=== PATIENT | male | born 1950 | race Caucasian/White ===

== ENCOUNTER 2022-06-08 08:44 | Outpatient (CLI) | payer MEDICARE, BC, SELFPAY ==
[2022-06-08 14:13] LABS: Chloride* 103 mmol/L (96-114); Sodium* 138 mmol/L (135-149)
[2022-06-08 14:14] LABS: Potassium* 4.7 mmol/L (3.6-5.1)
[2022-06-08 14:16] LABS: Alanine Aminotransferase* 24 U/L (4-50); Blood Urea Nitrogen* 18 mg/dL (7-30); Carbon Dioxide* 31 mmol/L (20-32); Cholesterol* 129 mg/dL (90-199); Creatinine* 0.8 mg/dL (0.5-1.5); Estimated Glomerular Filt Rate 93 ml/min
[2022-06-08 14:17] LABS: Calcium* 8.9 mg/dL (8.4-10.6); Glucose* 278 mg/dL (60-115); HDL Cholesterol* 33 mg/dL (>=40); LDL Cholesterol Calculated 53 mg/dL (<100); Triglycerides* 215 mg/dL (40-149)
[2022-06-08 15:21] LABS: PSA Screen* 2.76 ng/mL (0.10-4.00)
== END 2022-06-08 08:45 | disposition home or self-care (01) ==
PROVIDERS: PCP Family Medicine; Visit Provider Family Medicine
DX: Z00.00 Encounter for general adult medical examination without abnormal findings (principal); E11.9 Type 2 diabetes mellitus without complications; E78.5 Hyperlipidemia, unspecified; I10 Essential (primary) hypertension; Z12.5 Encounter for screening for malignant neoplasm of prostate; N40.0 Benign prostatic hyperplasia without lower urinary tract symptoms; G47.33 Obstructive sleep apnea (adult) (pediatric)
CPT/HCPCS: 80048; 80061; 84153; 84460

== ENCOUNTER 2022-09-09 09:17 | Outpatient (CLI) | payer MEDICARE, BC, SELFPAY ==
[2022-09-09 14:48] LABS: Uric Acid* 8.4 mg/dL (2.2-8.4)
== END 2022-09-09 09:18 | disposition home or self-care (01) ==
LOC: FBOREF 09:17
PROVIDERS: PCP Family Medicine; Visit Provider Family Medicine
DX: M10.9 Gout, unspecified (principal)
CPT/HCPCS: 84550

== ENCOUNTER 2023-01-01 12:55 | Emergency (ER) | payer MEDICARE, BC, SELFPAY ==
[2023-01-01 12:59] VITALS: BP 144/78; PULSE 78; RESP 18; TEMP 37.1; O2SAT 93; BMI 33.8
--- NOTE | 2023-01-01 13:10 | CRLHL7_ITS ---
For Patients: As a result of the Cures Act, medical imaging exams and procedure reports are released immediately into your electronic medical record. You may view this report before your referring provider. If you have questions, please contact your health care provider. INDICATION: fell in bathtub last night, RT elbow pain HISTORY: Fall. Right elbow pain. Comparison: None. Technique: Right elbow, three views. Findings: No fracture is identified. A true lateral projection was not obtained. No radiopaque foreign body or soft tissue gas. No articular erosion. No periarticular osteopenia. Mild osteophytic spurring is present at the elbow. Impression: 1. No acute fracture visualized. 2. A true lateral projection was not included. Dictated by Marcello Norton MD @ 01/01/2023 2:31:59 PM Dictated by: Marcello Norton MD @ 01/01/2023 14:32:11 (Electronically Signed)
--- NOTE | 2023-01-01 13:12 | ED.GENADULT ---
HPI - General Adult General Time Seen by Provider: 13:12 Date Seen: 01/01/23 Chief complaint: Extremity Pain/Injury, Upper Stated complaint: Fall, elbow pain Time Seen by Provider: 01/01/23 12:57 History of Present Illness HPI narrative: This is a very pleasant 72-year-old gentleman who presents to the ER today with his with concern for a right elbow injury. He has a past medical history including type 2 diabetes, diabetic neuropathy, GERD, gout, hypertension, sleep apnea, BPH, hyperlipidemia, coronary disease. He slipped and fell it last night when he was getting out of the bathtub. Does not remember exactly how he fell but it sounds like it was the wet floor in the bathtub. He fell and landed with his weight directly on his flexed right elbow. He did not have any other injuries from the fall. When asked specifically he denies any injury to his head. No neck pain. No chest pain. No left upper extremity pain. No back pain. No hip pain. No lower extremity injury. He is only having pain in his right elbow. He was able to go the bed and sleep normally last night. However this morning he noticed that his elbow was swollen, a little bit red, and painful. It hurts when he tries to flex it and hurts when he tries to pronate and supinate his forearm. The pain is primarily over the posterior elbow over the olecranon. Is not lacerated or bleeding. No pain proximally in the humerus or shoulder. No numbness or tingling in his hand. He takes aspirin. No other anticoagulant. Related Data Home Medications Medication Instructions Recorded Confirmed aspirin 81 mg chewable tablet 81 mg PO QDAY 06/08/22 12/20/22 (Aspirin Childrens) duloxetine 60 mg capsule,delayed 60 mg PO QDAY 06/08/22 12/20/22 release glipizide 10 mg tablet 20 mg PO BID 06/08/22 12/20/22 hydrochlorothiazide 25 mg tablet 25 mg PO QDAY 06/08/22 12/20/22 lisinopril 20 mg tablet 20 mg PO QDAY 06/08/22 12/20/22 sdiyxlmf-ezjydmpi-fyyrl acid 400 1 tab PO QDAY 06/08/22 12/20/22 mcg-vit K 20 mcg-lycop 300 mcg tablet (One-A-Day Men's Multivitamin) Previous Rx's Medication Instructions Recorded metformin 500 mg tablet,extended 1,000 mg (2 x 500 mg) PO BID #180 06/08/22 release 24 hr tabs metoprolol succinate 200 mg 200 mg PO QDAY #90 tabs 06/08/22 tablet,extended release 24 hr insulin glargine 100 unit/mL (3 20 unit (0.2 mL) subcut QAM 90 09/09/22 mL) subcutaneous pen (Basaglar days #21 mL KwikPen U-100 Insulin) atorvastatin 40 mg tablet 40 mg PO QDAY #90 tabs 09/13/22 blood sugar diagnostic (Contour #100 ea 09/20/22 Next Test Strips) lancets 30 gauge (BD Ultra-Fine II #100 ea 09/20/22 Lancets) flash glucose scanning reader #1 ea 11/16/22 (FreeStyle Dustin 2 [place]) flash glucose sensor (FreeStyle #2 ea 11/16/22 Dustin 2 Sensor kit) peg 3350-electrolytes 236 240 ml PO Q10M #4,000 mL 12/22/22 gram-22.74 gram-6.74 gram-5.86 gram solution (Golytely) pen needle, diabetic 31 gauge x #100 ea 12/23/22 5/16 (BD Ultra-Fine Short Pen Needle) tamsulosin 0.4 mg capsule (Flomax) 0.4 mg PO QDAY #90 caps 12/23/22 Allergies Allergy/AdvReac Type Severity Reaction Status Date / Time Iodinated Contrast Media Allergy Unknown Mid 60s. Verified 12/20/22 08:55 Had contrast since and did OK naproxen Allergy Unknown GI Bleed Verified 12/20/22 08:55 [facility] Medical History (Updated 01/01/23 @ 14:48 by Alok Ruby MD) Gout ?M10.9 - Gout, unspecified (ICD-10) Diabetic neuropathy ?E11.40 - Type 2 diabetes mellitus with diabetic neuropathy, unspecified (ICD-10) History of adenomatous polyp of colon ?Z86.010 - Personal history of colonic polyps (ICD-10) Sleep related gastroesophageal reflux disease ?K21.9 - Gastro-esophageal reflux disease without esophagitis (ICD-10) Hypertensive heart disease ?I11.9 - Hypertensive heart disease without heart failure (ICD-10) History of basal cell carcinoma (BCC) (2007) ?Z85.828 - Personal history of other malignant neoplasm of skin (ICD-10) Atherosclerotic heart disease ?I25.10 - Atherosclerotic heart disease of [place] coronary artery without angina pectoris (ICD-10) Atherosclerosis of [place] arteries of extremities with rest pain, bilateral legs ?I70.223 - Atherosclerosis of [place] arteries of extremities with rest pain, bilateral legs (ICD-10) Obstructive sleep apnea ?G47.33 - Obstructive sleep apnea (adult) (pediatric) (ICD-10) History of myocardial infarction (2008) ?I25.2 - Old myocardial infarction (ICD-10) Hypertension ?I10 - Essential (primary) hypertension (ICD-10) BPH (benign prostatic hyperplasia) ?N40.0 - Benign prostatic hyperplasia without lower urinary tract symptoms (ICD-10) Type 2 diabetes mellitus ?E11.9 - Type 2 diabetes mellitus without complications (ICD-10) Hyperlipidemia ?E78.5 - Hyperlipidemia, unspecified (ICD-10) Surgical History History of vasectomy ?Z98.52 - Vasectomy status (ICD-10) History of tonsillectomy ?Z90.89 - Acquired absence of other organs (ICD-10) History of foot surgery ?Z98.890 - Other specified postprocedural states (ICD-10) History of blepharoplasty (08/21/14) ?Z98.890 - Other specified postprocedural states (ICD-10) History of appendectomy ?Z90.49 - Acquired absence of other specified parts of digestive tract (ICD-10) History of total bilateral knee replacement ?Z96.653 - Presence of artificial knee joint, bilateral (ICD-10) History of total right hip arthroplasty (11/12/19) ?Z96.641 - Presence of right artificial hip joint (ICD-10) History of coronary artery stent placement (2007) ?Z95.5 - Presence of coronary angioplasty implant and graft (ICD-10) Family History Paternal Grandfather Diabetes Father Nonmelanoma skin cancer Coronary artery disease High cholesterol High blood pressure Brother Coronary artery disease, Onset Age: 58 High cholesterol Diabetes High blood pressure Sister High cholesterol High blood pressure Diabetes Social History (Updated 06/13/22 @ 21:24 by Gilberto Pope MD) Narrative: , 3 kids, retired, non-smoker, social EtOH Smoking Status: Former smoker Non-prescribed substance use: denies use Little interest or pleasure in doing things: several days Feeling down, depressed, or hopeless: not at all Exam Narrative: Exam Narrative: Constitutional: Appears well-developed and well-nourished. Alert. Conversant. Non toxic. HENT: Head: Atraumatic. Nose: Nose normal. Mouth/Throat: Oral mucosa is clear and moist. no trismus. Pharynx normal. Tonsils symmetric. No tonsillar enlargement, erythema, or exudate. Eyes: Conjunctivae normal. EOM normal. Pupils equal, round, and reactive to light. No scleral icterus. Neck: Normal range of motion. Neck supple. No tracheal deviation present. Cardiovascular: Normal rate, regular rhythm. No gallop. No friction rub. No murmur heard. Symmetric radial artery pulses Pulmonary/Chest: Effort normal. No stridor. No respiratory distress. No wheezes. No rales. No rhonchi . No tenderness. Abdominal: Soft. Bowel sounds normal. No distension. No mass. No tenderness. No rebound. No guarding. Musculoskeletal: RUE: Clavicle nontender. Shoulder joint nontender. Range of motion limited a little bit by elbow pain but he has intact abduction, flexion, internal and external rotation of the shoulder. He mows shaft is nontender. Strong brachial pulse. He is tender with subtle redness and swelling over the dorsal aspect of his elbow surrounding and the olecranon process. Also tender medially over the medial epicondyle of the distal humerus. No definite bony crepitus. He is able to extend almost complete being able to flex just beyond 90? but is limited by pain. He prefers to keep his forearm in neutral position and has pain with pronation and supination. When he does this he has pain in the area of the radial head. Forearm, wrist, hand, thumb, fingers are nontender. Intact radial, median, ulnar nerve motor and sensory function. Strong radial pulse. Brisk distal capillary refill. LUE: Normal range of motion. No tenderness. No deformity RLE: Normal range of motion. No edema. No tenderness. No deformity LLE: Normal range of motion. No edema. No tenderness. No deformity Neurological: Alert and oriented to person, place, and time. Normal strength. CN II-VII intact. No sensory deficit. GCS eye subscore is 4. GCS verbal subscore is 5. GCS motor subscore is 6. Normal coordination Skin: Skin is warm and dry. No rash noted. No pallor. Normal capillary refill. Psychiatric: Normal mood. Normal affect. Const: Vital Signs, click to edit/add: Vital Signs - 24 hr 01/01/23 12:59 Temperature 98.8 F Pulse Rate [Right Pulse Oximeter] 78 Respiratory Rate 18 Blood Pressure [Ri ght Upper Arm] 144/78 H Pulse Oximetry 93 Oxygen Delivery Me thod Room Air Course Vital Signs Vital signs: Initial Vital Signs Temperature 98.8 F 01/01/23 12:59 Temperature Source Temporal Artery Scan 01/01/23 12:59 Pulse Rate 78 01/01/23 12:59 Respiratory Rate 18 01/01/23 12:59 Blood Pressure 144/78 H 01/01/23 12:59 Blood Pressure Mean 100 01/01/23 12:59 Blood Pressure Position Sitting 01/01/23 12:59 Pulse Oximetry 93 01/01/23 12:59 Oxygen Delivery Method Room Air 01/01/23 12:59 Vital Signs Temperature 98.8 F 01/01/23 12:59 Pulse Rate 78 01/01/23 12:59 Respiratory Rate 18 01/01/23 12:59 Blood Pressure 144/78 H 01/01/23 12:59 Pulse Oximetry 93 01/01/23 12:59 Oxygen Delivery Method Room Air 01/01/23 12:59 Temperature 98.8 F 01/01/23 12:59 Pulse Rate 78 01/01/23 12:59 Respiratory Rate 18 01/01/23 12:59 Blood Pressure 144/78 H 01/01/23 12:59 Pulse Oximetry 93 01/01/23 12:59 Oxygen Delivery Method Room Air 01/01/23 12:59 Medical Decision Making [facility] Narrative Medical decision making narrative: Pleasant 72-year-old gentleman presents to the ER today with right elbow pain that began overnight after he slipped and fell, landing on his elbow yesterday evening getting out of the shower. Fortunately x-rays are negative for any acute fracture. He is neurovascularly intact in that arm. No evidence for other injuries such as cervical spine, shoulder, humerus fracture. He does have pain with swelling on the dorsum of the elbow which could be a soft tissue contusion however there is a small amount of redness there. Almost wonder if he may be developing a posttraumatic olecranon bursitis. No clear evidence for cellulitis. No definite fluctuance. At this point I do not think he needs bursa fluid aspiration. No concern for septic bursitis. There is no other redness around the elbow joint to suggest a septic elbow. I do not think he needs arthrocentesis. Plan will be supportive care with sling, rest, ice, nonsteroidal anti-inflammatories. He does have a history of adverse reaction to naproxen which causes stomach upset. No history of kidney failure. Consider possible use of steroids but he is diabetic and this may actually worsen his glycemic control so will start with a short course of ibuprofen. He will use 600 mg q.6 hours p.r.n. for the next 2-3 days. If he is not improving he will follow-up with orthopedics or return to the ER for re-evaluation. Imaging Data X-ray right elbow: Attestation: I have reviewed the pertinent imaging results. My impression: No acute fracture Radiologist's impression: Impression: 1. No acute fracture visualized. 2. A true lateral projection was not included. Discharge Plan Discharge Clinical Impression: Elbow pain, right Patient Disposition: Home, Self-Care Condition: Stable Instructions: Elbow Sprain (ED) Additional Instructions: At this time we do not see any broken bones in your elbow. We help with your pain is just due to bruising and swelling from falling. However I am concerned that you may be at risk for developing ?olecranon bursitis?. This could lead to increasing swelling and home watery fluid collection on the back of your elbow. Try to rest her elbow for the next few days. Use the sling when you are up and around. Use ice pack for 20 minutes every 3-4 hours. Use ibuprofen for anti-inflammatory effect and pain relief. If terrible is not completely improve within the next 3-5 days, recheck with the [facility]. Call [phone] to arrange an appointment. If you have any concerns especially worsening pain, high fever, numbness or weakness down your arms or in your hand, come back to the ER immediately. Prescriptions: No Action (DME) FreeStyle Dustin 2 [place] Misc See Rx Instructions .Route Qty: 1 0RF Rx Instructions: As directed (DME) FreeStyle Dustin 2 Sensor Kit See Rx Instructions .Route Qty: 2 3RF Rx Instructions: Change every 2 weeks glipizide 10 mg tablet 20 mg PO BID Patient Comments: TAKE TWO TABLETS BY MOUTH BEFORE BREAKFAST AND ONE TABLET BEFORE SUPPER. duloxetine 60 mg capsule,delayed release(DR/EC) 60 mg PO QDAY Patient Comments: AFTER 1 WEEK ON 30 MG START TAKING TAKE ONE CAPSULE BY MOUTH EVERY DAY hydrochlorothiazide 25 mg tablet 25 mg PO QDAY Patient Comments: TAKE ONE TABLET BY MOUTH EVERY DAY DUE FOR APPOINTMENT IN JULY CALL 2-3 MONTHS IN ADVANCE lisinopril 20 mg tablet 20 mg PO QDAY Patient Comments: TAKE ONE TABLET BY MOUTH EVERY DAY FOR HYPERTENSION aspirin [Aspirin Childrens] 81 mg tablet,chewable 81 mg PO QDAY One-A-Day Men's Multivitamin 400-20-300 mcg tablet 1 tab PO QDAY metformin 500 mg tablet extended release 24 hr 1,000 mg PO BID Qty: 180 0RF metoprolol succinate 200 mg tablet extended release 24 hr 200 mg PO QDAY Qty: 90 3RF insulin glargine [Basaglar KwikPen U-100 Insulin] 100 unit/mL (3 mL) insulin pen 20 unit subcut QAM 90 Days Qty: 21 3RF atorvastatin 40 mg tablet 40 mg PO QDAY Qty: 90 3RF (DME) Contour Next Test Strips Strip See Rx Instructions .Route Qty: 100 3RF Rx Instructions: As directed (DME) lancets [BD Ultra-Fine II Lancets] 30 gauge misc See Rx Instructions .Route Qty: 100 3RF Rx Instructions: As directed peg 3350-electrolytes [Golytely] 236-22.74-6.74 -5.86 gram recon soln 240 ml PO Q10M Qty: 4000 0RF Rx Instructions: until fecal effluent is clear tamsulosin [Flomax] 0.4 mg capsule 0.4 mg PO QDAY Qty: 90 3RF (DME) pen needle, diabetic [BD Ultra-Fine Short Pen Needle] 31 gauge x 5/16 needle See Rx Instructions .Route Qty: 100 2RF Rx Instructions: QD Follow Up/Referrals: Gilberto Pope MD [Primary Care Provider] - Stand Alone Forms: [employer] Info Instructions
[2023-01-01 14:46] VITALS: BP 129/87; PULSE 82; RESP 14; O2SAT 97
--- NOTE | 2023-01-01 15:05 | ED.NURSE ---
Arm sling applied by EDT.
== END 2023-01-01 15:17 | disposition home or self-care (01) ==
PROVIDERS: Emergency Provider Emergency Medicine; PCP Family Medicine
DX: M25.521 Pain in right elbow (principal)
CPT/HCPCS: 73080; 99283

== ENCOUNTER 2023-01-03 09:52 | Outpatient (CLI) | payer MEDICARE, BC, SELFPAY ==
--- NOTE | 2023-01-03 11:18 | W.ANESCHARGE ---
Anesthesia Charges Start Date/Time Anesthesia Start Date: 01/03/23 Anesthesia Start Time: 11:25 Stop Date/Time Anesthesia Stop Date: 01/03/23 Anesthesia Stop Time: 12:06 Summary Extremes of Age - Over 70 or under 1: MDA
--- NOTE | 2023-01-03 12:10 | W.ANESCHARGE ---
Anesthesia Charges Start Date/Time Anesthesia Start Date: 01/03/23 Anesthesia Start Time: 11:25 Stop Date/Time Anesthesia Stop Date: 01/03/23 Anesthesia Stop Time: 12:06
== END 2023-01-03 09:53 | disposition home or self-care (01) ==
LOC: OP CLINIC 09:54
PROVIDERS: PCP Family Medicine; Visit Provider Surgery
DX: Z86.010 Personal history of colon polyps (principal); K64.8 Other hemorrhoids; K64.4 Residual hemorrhoidal skin tags; K57.30 Diverticulosis of large intestine without perforation or abscess without bleeding
CPT/HCPCS: 00811; 45378; 99100; J2704

== ENCOUNTER 2023-01-13 07:40 | Outpatient (CLI) | payer MEDICARE, BC, SELFPAY ==
--- NOTE | 2023-01-13 08:00 | CRLHL7_ITS ---
For Patients: As a result of the Century Cures Act, medical imaging exams and procedure reports are released immediately into your electronic medical record. You may view this report before your referring provider. If you have questions, please contact your health care provider. Indication: Right elbow pain Technique: Routine noncontrast CT right elbow Please note that all CT scans at this facility use dose modulation, iterative reconstruction, and/or weight-based dosing when appropriate to reduce radiation dose to as low as reasonably achievable. Comparison: Radiographs 01/01/2023 Findings: Spurring is present at the radial capitellar and ulna humeral compartments. Curvilinear spur at the medial humeral epicondyle. Multiple chronic ossicles adjacent to the lateral humeral epicondyle. Small density adjacent to the tip of the posterior olecranon at the joint space. Other soft tissue densities are present adjacent to the posterior joint capsule. Posterior olecranon spur noted with overlying soft tissue swelling. Joint effusion is present. No osteonecrosis, malalignment, intrinsic osseous lesion or fracture. 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 No fracture deformity. Likely degenerative related posterior soft tissue densities. Chronic medial and lateral humeral epicondylitis. Posterior olecranon spur with probable olecranon bursitis. Please note that all CT scans at this facility use dose modulation, iterative reconstruction, and/or weight-based dosing when appropriate to reduce radiation dose to as low as reasonably achievable. Dictated by Gilberto Jesus MD @ 01/13/2023 8:55:35 AM (Electronically Signed)
== END 2023-01-13 07:41 | disposition home or self-care (01) ==
LOC: CT 07:40
PROVIDERS: PCP Family Medicine; Visit Provider Family Medicine
DX: M25.521 Pain in right elbow (principal); M19.021 Primary osteoarthritis, right elbow; M77.11 Lateral epicondylitis, right elbow
CPT/HCPCS: 73200

== ENCOUNTER 2023-02-17 08:53 | Outpatient (CLI) | payer MEDICARE, BC, SELFPAY ==
--- NOTE | 2023-02-17 09:15 | MR_ITS ---
[address] [address] Phone:?[phone] Fax:?[phone] Referring Physician Information: Rito Campbell [address] [facility] [address] Phone:?[phone] Fax:?[phone] Patient:Benjamín New D.O.B:?1950 Sex:?Male Phone:? [facility] MRN:?[id number] Exam Date:?02/17/2023 EXAM: MRI EXAMINATION OF THE LEFT HIP CLINICAL INFORMATION: Male, 72 years old, with left hip pain. INDICATION: Evaluate hip pain. PRIOR SURGERY: None reported. PLAIN FILMS: None available. COMPARISONS: No prior MRIs available. TECHNICAL INFORMATION: Using a 1.5T MR scanner and a localizing surface coil: coronals: PD, T2 sagittals: PD, T2 oblique axials: PD straight axials: PDFS coronals: T1, STIR of pelvis and hips SEDATION: None CONTRAST: None FINDINGS: Hip joint: Moderate left hip joint effusion. Moderate-marked generalized thinning of the articular cartilage throughout the superior aspect of the left hip joint, with areas of near full-thickness chondral loss. No intra-articular bodies. Status post right total hip arthroplasty, which is largely obscured by the metal susceptibility artifact. Labrum: Intrasubstance degeneration and poorly defined fraying/tearing of the anterior through posterosuperior labrum, with a 10 x 6 mm anterosuperior paralabral cyst (axial PD oblique series 6 image 16). Proximal femur: No femoral occult fracture, stress injury, marrow edema or osteonecrosis. Loss of normal femoral head/neck junction offset with mild cam morphology. Mild marginal osteophytosis. Acetabulum: Mild-moderate marginal osteophytosis and reactive osseous changes are present. No stress/occult fracture or periacetabular ossicle. Version: Normal acetabular anteversion. Coverage: Left lateral center edge (CE) angle measures approximately 32? (normal 25?-39?), midline coronal series image 15, corrected for pelvic obliquity. Ligamentum teres: Ligamentum teres is intact and unremarkable. Iliofemoral ligament: The iliofemoral ligament is intact without thickening. Pelvis osseous structures: Sacral ala and sacroiliac joints: No stress/insufficiency fractures or marrow edema/pathology. No demonstrable sacroiliitis. Pubic rami and pubic symphysis: No stress/insufficiency fractures or marrow edema/pathology. Normal alignment without hypertrophy or evidence of ongoing osteitis pubis. Myotendinous structures: Gluteus abductors: Mild gluteus minimus insertional tendinopathy, without tear. Gluteus medius is unremarkable. Adductors: No demonstrable tendinopathy or strain/tear. Hamstrings: Mild common hamstrings tendinopathy, bilaterally, without tear. Flexors: Intact iliopsoas and rectus femoris, without strain/tear. External rotators: Intact, without demonstrable ischiofemoral impingement. Gluteal aponeurotic fascia and IT band: Unremarkable. Bursae: No demonstrable trochanteric, iliopsoas, or iliopectineal bursitis. Intrapelvic contents: Free fluid: No free fluid seen within the pelvis. Pelvic viscera: No discrete intrapelvic mass is identified. Diffuse enlargement of the prostate, in keeping with benign prostatic hyperplasia. Lymph nodes: No lymphadenopathy by MRI size criteria. Neurovascular structures: No discrete cyst, mass or other compression upon the portions visualized of sciatic or femoral nerves. Lumbar spine: Disc desiccation and mild-moderate disc height loss is present throughout the lower lumbar spine. IMPRESSION: 1. Moderate osteoarthritis of the left hip joint with a joint effusion. 2. Broad-based degeneration and poorly defined fraying/tearing of the anterior through posterosuperior labrum with a small anterosuperior paralabral cyst. 3. Mild gluteus minimus and bilateral common hamstrings tendinopathy, without tear. 4. Mild-moderate lower lumbar spondylosis. 5. No fracture or osseous stress reaction. BC Electronically signed on 02/17/2023 11:48:00 AM by Elieser Blanco M.D.
== END 2023-02-17 08:54 | disposition home or self-care (01) ==
LOC: MRI 08:54
PROVIDERS: PCP Family Medicine; Visit Provider Physician Assistant
DX: M25.552 Pain in left hip (principal); M16.12 Unilateral primary osteoarthritis, left hip; M25.452 Effusion, left hip; M47.896 Other spondylosis, lumbar region
CPT/HCPCS: 73721

== ENCOUNTER 2023-03-18 09:38 | Outpatient (RCR) | payer MEDICARE, BC, SELFPAY ==
--- NOTE | 2023-03-18 12:36 | PT.OPEX ---
PT [place] [facility] Eval PT [facility] Outpatient Eval Start: 03/18/23 08:54 Freq: Status: Active Protocol: Document 03/18/23 08:55 AMS (Rec: 03/18/23 11:03 AMS [id number]) E-signed By Laure Cordova PT Physical Therapy Outpatient Evaluation Insurance Information Recert Due Date 06/11/23 Insurance Name Medicare B Medical Diagnosis S/p left VINNIE 03/24/23 pre-op Unilateral primary hip osteoarthritis Presence of left artificial hip joint Treating Diagnosis Aftercare following joint replacement Muscle weakness Left hip pain/stiffness Difficulty walking Referring KIKI Moe Subjective Subjective Jigar is here today with his for MRI results of the left hip. His hip pain continues and continues to affect his daily life. He continues to have pain with weight-bearing, sleeping, putting his socks on and off, getting in and out of a car. He cannot tolerate grocery shopping. He states he has to be able to walk faster than his , now he walks much slower than his . He does not wish to take pain medication or anti- inflammatories or have a cortisone injection. He had his right hip replaced 2019 in [place]. 2008 he underwent left knee replacement, followed by left knee infection, implant removal, antibiotic cement spacing, then later implants reimplanted. 2007 right partial knee replacement. He has diabetes type 2 and is on insulin. In December his hemoglobin A1c was 6.9. He is very happy with his right hip replacement. He is ready for left hip replacement and with having a previous left knee infection, he accepts the risks involved. He has never had a DVT or PE. He has no family history of DVT or PE. -KIKI Burr, ; confirmed by patient Patient presents to pre- operative appointment prior to left total hip arthroplasty scheduled for 03/[address] Wilks. He states he has been having left hip pain for the past two months. It has been continuing to worsen and affect his ability to walk more than a short distance as well as dress. He wanted to be proactive and have the surgery before it started to get worse. He knows what to expect with surgery, as he has had both knees and right hip replaced with the hip surgery most recently in 2019. The pain is localized to the groin and sometimes the buttock and worse with movement/walking. He would describe it as sharp and relieving with rest. He does not use any assistive device at baseline. He has not tried any previous treatments for left hip. He has done physical therapy before for his previous surgeries. Please see pre-op note for details on home set up. Notably, pt has 3 stairs to enter the home with a railing and no other stairs he will need to navigate. His will be available 24-7 to provide care after surgery. Patient states he is pretty sedentary throughout the day and has not historically exercised. Patient will be doing outpatient therapy at [facility] after surgery. Please see below for PMHx. Previous note on 02/07/23: A week after he was at a celebration for life and had a bit much to drink and fell out of his shower later on that evening, he does not recall this, however the shower curtain was pulled down . The next morning he had elbow pain. It is not recall hip pain after the incident and does not know if it is related to his current symptoms. -KIKI Burr Pain Comments 2/10 at best 8/10 at worst Date of Last Physician Visit 02/21/23 Current Work Status Retired Occupation Previous worked in [employer] business Precautions Treatment Precautions/Contraindications Diabetic neuropathy History of adenomatous polyp of colon Sleep related gastroesophageal reflux disease Hypertensive heart disease History of basal cell carcinoma (BCC) 2007 Atherosclerotic heart disease Atherosclerosis of [place] arteries of extremities with rest pain, bilateral legs Obstructive sleep apnea History of myocardial infarction 2007 Hypertension BPH (benign prostatic hyperplasia) Type 2 diabetes mellitus Hyperlipidemia Weight Bearing Status Weight Bear as Tolerated Objective Other/Pertinent Objective Knee ROM L 0-5-95 R 0-0-130 Hip ROM Flexion: Limited to 90 deg on L, IR 0 deg, ER 35 deg, extension WNL. Pain with hip flexion/IR Strength: Quad set: Good SLR: No quad lag, lack of end- range knee extension Gait/balance: SL balance 2 sec each side with pain on left. Ambulates with increased hip ER bilaterally, decreased blanca/shuffling nature, mildly antalgic on left, decreased terminal knee extension/hip flexion on L. Inc genu varum on R. Palpation/joint mobility: Tenderness to palpation over left posterolateral buttock area. No TTP over ASIS/ anterior proximal quad. Swelling/observation: No swelling/bruising noted. Functional Test Performed & Score DL squat: to 45 deg, increased hip ER BL, pain in left hip Assessment Assessment/Impression Patient is a 72 year old male presenting for pre-operative visit prior to left total hip arthroplasty on 03/24/[address] Wilks. Imaging shoes moderate osteoarthritis of left hip with joint narrowing. Upon assessment, patient displays decreased hip and knee ROM, decreased proximal hip strength, and antalgic/ impaired gait pattern. These impairments lead to difficulty with weight-bearing, sleeping , putting his socks on and off , getting in and out of a car, walking, standing, squatting, and grocery shopping. PMHx significant for right hip and bilateral knee replacements, diabetes, [place] w/ stent placement, and sedentary lifestyle. Pt wishes to pursue surgical management at this time and does not wish to trial conservative treatment. Patient will be seen post operatively at [facility] physical therapy to reassess impairments that will be addressed with skilled care. Jigar would greatly benefit from skilled PT in order to progress strength, ROM, and ambulation post operatively in order to perform all household and work duties without significant difficulty or discomfort. Primary Functional Limitations weight-bearing, sleeping, putting his socks on and off, getting in and out of a car, grocery shopping Plan of Care Rehabilitation Potential Good Physical Therapy Goals After pre-op visit: ? Patient will be independent with HEP. ? Patient will verbalize knowledge of stair navigation and proper sequencing. ? Patient will have knowledge on home adaptations and use of assistive devices post operatively. ? Patient will have knowledge of edema management. ALL MET 03/18 Coordination/Communication With Referral Source Treatment Plan/Direct Interventions Therapeutic Exercises Frequency/Duration 1x visit prior to surgery on 03/24/23. Patient scheduled to start outpatient PT s/p VINNIE on 04/01 at [facility] PT. Has HEP to start with pre-operatively . Patient Will Be Discharged From Therapy Completion of LTG(s), Independent w/HEP, Independently Progressing Evaluation Billing Untimed Code Treatment Minutes 15 Complexity Low Certification Information Initial Certification Date 03/18/23 Ending Certification Date 06/11/23 Provider Signature Shows Agreement With POC & Medical Necessity Physician Signature & Date Requested Please Sign/Date Here Physician Comment/Change : Physician NPI Number #
== END 2023-07-16 23:59 | disposition home or self-care (01) ==
PROVIDERS: PCP Family Medicine; Visit Provider Physician Assistant
DX: M16.12 Unilateral primary osteoarthritis, left hip (principal); Z96.642 Presence of left artificial hip joint; M62.81 Muscle weakness (generalized); M25.552 Pain in left hip; M25.652 Stiffness of left hip, not elsewhere classified; R26.2 Difficulty in walking, not elsewhere classified; Z47.1 Aftercare following joint replacement surgery; Z51.89 Encounter for other specified aftercare
CPT/HCPCS: 97110; 97161

== ENCOUNTER 2023-03-21 13:53 | Outpatient (CLI) | payer MEDICARE, BC, SELFPAY | END 2023-03-21 13:54 | disposition home or self-care (01) | PROVIDERS: PCP Family Medicine; Visit Provider Family Medicine | DX: Z01.818 Encounter for other preprocedural examination (principal); E78.5 Hyperlipidemia, unspecified; E11.9 Type 2 diabetes mellitus without complications; Z12.5 Encounter for screening for malignant neoplasm of prostate | CPT/HCPCS: 80048; 80061; 84153; 84460; 85025 ==

== ENCOUNTER 2023-03-22 09:23 | Outpatient (CLI) | payer MEDICARE, BC, SELFPAY | END 2023-03-22 09:24 | disposition home or self-care (01) | LOC: LAB 09:24 | PROVIDERS: PCP Family Medicine; Visit Provider Orthopaedic Surgery | DX: Z01.818 Encounter for other preprocedural examination (principal) | CPT/HCPCS: 36415; 86850; 86900; 86901 ==

== ENCOUNTER 2023-03-24 07:50 | Day surgery (SDC) | payer MEDICARE, BC, SELFPAY ==
[2023-03-24] VITALS (34 sets, daily range): BP systolic 82–142; BP diastolic 48–77; PULSE 44–58; RESP 12–16; TEMP 35.8–36.7; O2SAT 91–99; BMI 34.5
[2023-03-24] MEDS: LACTATED RINGERS 1000 ML 1,000 ML 100 ML IV ×2 (08:00→10:34)
[2023-03-24] MEDS: OXYCODONE (CR) 10 MG TAB.ER.12H PO (08:20)
[2023-03-24] MEDS: ACETAMINOPHEN 500 MG TABLET 1000 MG PO ×3 (08:22→20:45)
[2023-03-24] MEDS: SODIUM CHLORIDE 0.9 % (FLUSH) 10 ML SYRINGE IVF (08:30)
[2023-03-24] MEDS: fentaNYL 100 MCG/2 ML inj IVP (09:15)
[2023-03-24] MEDS: MIDAZOLAM HCL 1 MG/ML inj IVP (09:15)
--- NOTE | 2023-03-24 09:15 | SUR.PREOP ---
TIME?OUT:?15 PT/RN/MDA?VERIFICATION?OF?SURGICAL?SITE,?PROCEDURE,?AND?CONSENT OBTAINED?PRIOR?TO?INVASIVE?PROCEDURE.
--- NOTE | 2023-03-24 09:30 | CRLHL7_ITS ---
For Patients: As a result of the Century Cures Act, medical imaging exams and procedure reports are released immediately into your electronic medical record. You may view this report before your referring provider. If you have questions, please contact your health care provider. Fluoroscopy was provided intraoperatively for the Orthopedic surgery service. Spot films demonstrate a left total hip arthroplasty. Components appear appropriately seated. No fracture is apparent on these images. Dictated by Willie Arauz MD @ 03/29/2023 7:06:28 AM (Electronically Signed)
[2023-03-24] MEDS: CEFAZOLIN 2 GM INJ IVP (10:10)
[2023-03-24] MEDS: BUPIVACAINE 0.5% 30 ML INJECTION (10:10)
[2023-03-24] MEDS: TRANEXAMIC ACID 100 MG/ML INJ 1000 MG IV (10:11)
[2023-03-24] MEDS: LACTATED RINGERS 1000 ML 1,000 ML 75 ML IV ×2 (12:01→15:06)
--- NOTE | 2023-03-24 12:13 | CRLHL7_ITS ---
For Patients: As a result of the Cures Act, medical imaging exams and procedure reports are released immediately into your electronic medical record. You may view this report before your referring provider. If you have questions, please contact your health care provider. INDICATION: Post operative total hip arthroplasty TECHNIQUE: Pelvis radiograph, Hip radiograph 2 views left COMPARISON: 03/24/2023 FINDINGS: Bone: No acute fractures or aggressive bone lesions are identified. The iliac crests are partially excluded. Joint: A right total and left bipolar hip arthroplasty is noted. The visualized sacroiliac joints are unremarkable in appearance. The pubic symphysis is normal in appearance. Soft tissue: Lateral left subcutaneous gas and joint gas are present from recent surgery. The visualized bowel gas pattern of the pelvis is unremarkable in appearance. No radiopaque foreign bodies are seen. IMPRESSION: 1. There is an unremarkable postoperative appearance of the left hip arthroplasty. Dictated by: Syed Kwon MD @ 03/29/2023 15:40:03 (Electronically Signed)
--- NOTE | 2023-03-24 12:30 | P.ORPRC_ITS ---
Procedure Note Date of procedure: 03/24/23 Procedure: PREOPERATIVE DIAGNOSIS: Left hip osteoarthritis, left hand middle finger stenosing tenosynovitis POSTOPERATIVE DIAGNOSIS: Left hip osteoarthritis, left hand middle finger stenosing tenosynovitis NAME OF OPERATION: Left total hip arthroplasty, left hand middle finger A1 leona release SURGEON: Kwaku Wilks MD OBSERVER HELPER: Michelle Gotti PA-C, PIPER Brooks IMPLANTS: 1. [employer] [place] # 54 sector ingrowth cup 2. 36 x 54 +4 neutral polyethylene 3. Actis # 7, high offset collared ingrowth stem 4. 36 + 5 ceramic femoral head ANESTHESIA: General ESTIMATED BLOOD LOSS: 1000 cc COMPLICATIONS: None SPECIMENS: None DRAINS: None PREOPERATIVE ANTIBIOTICS: Ancef 2 grams INDICATIONS: The patient is a 72-year-old with a longstanding history of severe, unrelenting left hip pain secondary to end-stage left hip osteoarthritis. Despite appropriate nonoperative management, including activity modification, use of an assist device, anti-inflammatories, buas-[id number]-[id number] pain medication, physical therapy and injections, they continue to have pain and disability. Operative intervention was offered. On the morning of surgery, the patient asked if we could release his left hand middle trigger finger. He has had surgery on other digits for painful triggering. He has had symptoms in the left hand for the past year which has not been responsive to non operative treatment. On exam there is catching, popping and lucie locking of left hand middle finger. There is tenderness in the region of the A1 leona and a small palpable nodule. These findings are consistent with the diagnosis of left hand, middle finger stenosing tenosynovitis. The risks, benefits and expected outcomes were discussed in detail. These included but were not limited to: Infection, bleeding, injury to blood vessel or nerve, venous thromboembolism. All questions were answered to their satisfaction. Use of an assistant grocery was necessary throughout the case for patient positioning and safety, soft tissue retraction and closure. PROCEDURE: The patient was placed supine on the [place] table. General anesthesia was administered. The assistant grocery made sure the patient was properly positioned. The left hand was prepped and draped in usual sterile fashion. It was elevated and the [facility] tourniquet was inflated to 250 mmHg. A transverse incision was made at the base of the middle finger in the region of the A1 leona. Subcutaneous dissection was taken with tenotomy scissors to the flexor tendons. The A1 leona was divided longitudinally with the 15 blade in the tenotomy scissors. The wound was irrigated with normal saline. Bleeding was controlled with direct pressure. The wound was closed with a 3-0 nylon in an interrupted horizontal mattress fashion. A dry dressing was applied. Attention was then turned to the hip. The left hip was prepped and draped in the usual sterile fashion. The image intensifier was brought in for a perfect AP pelvis and a perfect double tear drop AP view of each hip which were used for intraoperative templating with our fluoroscopic guide. An oblique incision was made 3 cm distal and 3 cm lateral to the anterior superior iliac spine. The assistant grocery retracted the soft tissues to protect them. Subcutaneous dissection was taken with electrocautery to the superficial fascia. The fascia was divided in line with the incision. Blunt dissection was carried medially to the tensor fascia cori and sartorius interval. Deep dissection was carried with electrocautery. The circumflex vessels were cauterized and divided. The capsule was exposed and then divided in a T- fashion, tagged with #1 Ethibond sutures. Retractors were placed in the joint, held by the assistant grocery. The corkscrew was placed in the femoral head. The neck cut was made in the subcapital region. We made a second neck cut more distal. The napkin ring of bone was removed. The femoral head was removed intact. Acetabular retractors were placed, held by the assistant grocery. The labrum was sharply debrided. The capsule was released. The 43 mm reamer was used to the true medial wall. We then enlarged in 2 mm increments using the image intensifier for our reamer placement. We impacted the cup which had excellent purchase. We placed the hole eliminator and the polyethylene. Attention was then turned to the proximal femur. The limb was placed in 140 degrees of external rotation, maximum extension and adduction. A significant amount of time was spent releasing the capsule to allow us to deliver the femur into the wound and complete the femoral side safely. Retractors were held by the assistant grocery throughout the femoral preparation. The box printing machine operator and canal finder were used. Broaches were used to a stable size. The calcar reamer was used. Trial components were placed. The hip was reduced and was found to be stable with appropriate soft tissue tension. Length and offset had been nicely restored using the image intensifier and our fluoroscopic guide. Trial components were removed. The stem was impacted. We placed the femoral head. Again, the hip was reduced and was found to be stable with appropriate soft tissue tension. Length and offset had been nicely restored. The assistant grocery did a three minute dilute Betadine solution soak. The assistant grocery irrigated the wound with 3 liters of normal saline via pulse lavage. The assistant grocery repaired the anterior capsule with a #1 Vicryl and our previously placed Ethibond sutures. The assistant grocery closed the fascia over the tensor fascia cori with a #1 PDO Stratafix, subcutaneous tissues with 2-0 Vicryl, skin with a running 3-0 Stratafix and glue. A dry dressing was applied by the assistant grocery. Sponge and needle counts were correct x 2. The patient tolerated the procedure well; there were no apparent complications. They were awakened and extubated in the operating room, sent to the Post-Anesthesia Care Unit in satisfactory condition. PLAN: 1. The patient will be mobilized with physical therapy, weight-bearing as tolerates 2. Xarelto x 5 days then aspirin x 30 days will be used for DVT prophylaxis 3. The patient will be discharged once medically appropriate
--- NOTE | 2023-03-24 13:15 | P.NB_ITS ---
Nerve Block Nerve Block Time Seen by Provider: 09:20 Date Seen: 03/24/23 Type of block requested by surgeon for post-operative analgesia: REED/LFCN Side: left Time out performed: Yes Verification of patient name: Yes Verification of date of : Yes Site marking: site marked Name of person performing procedure: Randolph Assistants, if any: Marianela Continuous monitoring Was continuous monitoring of O2 sat, B/P, diagnostic cardiac sonographer, recorded every 15 minutes?: Yes Procedure Checklist: sterile prep, needles and gloves Ultrasound guided. Images saved: Yes Medications given in 5ml increments after negative aspiration: Ropivicaine %: 0.5 mL: 30 Needle gauge: 20 Decadron (mg): 10 Precedex (mcg): 25 Patient tolerated procedure well: Yes Additional comments: Needle noted below psoas tendon needle noted adjacent to LFCN Block Charges Block Charge (with Pro Fee): Other Periph Nerve Block Use of Ultrasound Machine for Block: Yes- US Guidance/pain block
--- NOTE | 2023-03-24 13:16 | W.ANESCHARGE ---
Anesthesia Charges Start Date/Time Anesthesia Start Date: 03/24/23 Anesthesia Start Time: 09:37 Stop Date/Time Anesthesia Stop Date: 03/24/23 Anesthesia Stop Time: 13:58 Summary Extremes of Age - Over 70 or under 1: MDA
--- NOTE | 2023-03-24 13:23 | P.ANES_ITS ---
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
[2023-03-24] MEDS: HYDROmorphone 0.5 mg/0.5 ml inj IVP (13:24)
[2023-03-24] MEDS: LACTATED RINGERS 1000 ML 1,000 ML 35 ML IV (13:26)
[2023-03-24] MEDS: fentaNYL 100 MCG/2 ML inj 50 MCG IVP (13:35)
--- NOTE | 2023-03-24 14:25 | W.ANESCHARGE ---
Anesthesia Charges Start Date/Time Anesthesia Start Date: 03/24/23 Anesthesia Start Time: 09:37 Stop Date/Time Anesthesia Stop Date: 03/24/23 Anesthesia Stop Time: 12:58 Summary Extremes of Age - Over 70 or under 1: MDA
--- NOTE | 2023-03-24 14:28 | W.ANESCHARGE ---
Anesthesia Charges Start Date/Time Anesthesia Start Date: 03/24/23 Anesthesia Start Time: 09:37 Stop Date/Time Anesthesia Stop Date: 03/24/23 Anesthesia Stop Time: 12:58
--- NOTE | 2023-03-24 14:48 | PM.IMCN1 ---
Date of Consult Patient: [facility] Patient Consult date: 03/24/23 Requesting Physician: Orthopedics Primary Care Provider: Gilberto Pope MD Consult Narrative Reason for consult: Medical management of comorbidities, postoperative hypotension Narrative: Jigar New is a 72 year old male who presented to the hospital today for an elective L VINNIE. There were no surgical or anesthetic complications noted during procedure, EBL noted to be around 1000mL. Patient required IV fluid resuscitation and epinephrine postoperatively given hypotension. Pulse has been in the 40-50s; Jigar did take his metoprolol and lisinopril as directed this morning. He has been off of his aspirin preoperatively, no other blood thinners. Patient's H&P reviewed, PCP is Dr. Pope. Past medical history significant for: KATIA, essential hypertension, IDDM2 (A1C 6.7 in 03/2023), ASCVD, BPH, multiple previous orthopedic procedures. History of blood clots: No History of blood transfusions: No Postoperative plan: Home with When I see patient, he is lying comfortably in bed. He does not feel lightheaded or dizzy at rest. He has no chest pain or dyspnea. notes that he may be slightly paler than normal. Review of Systems Status of ROS: Reports: 10 or more systems reviewed and unremarkable except as noted in History and below [facility] Medical History (Updated 03/24/23 @ 15:23 by Liz Wallace MD) Type 2 diabetes mellitus, with long-term current use of insulin ?E11.9 - Type 2 diabetes mellitus without complications (ICD-10) ?Z79.4 - long term care phlebotomist (current) use of insulin (ICD-10) Mixed hyperlipidemia ?E78.2 - Mixed hyperlipidemia (ICD-10) Primary hypertension ?I10 - Essential (primary) hypertension (ICD-10) Gout ?M10.9 - Gout, unspecified (ICD-10) Diabetic neuropathy ?E11.40 - Type 2 diabetes mellitus with diabetic neuropathy, unspecified (ICD-10) History of adenomatous polyp of colon ?Z86.010 - Personal history of colonic polyps (ICD-10) Sleep related gastroesophageal reflux disease ?K21.9 - Gastro-esophageal reflux disease without esophagitis (ICD-10) Hypertensive heart disease ?I11.9 - Hypertensive heart disease without heart failure (ICD-10) History of basal cell carcinoma (BCC) (2007) ?Z85.828 - Personal history of other malignant neoplasm of skin (ICD-10) Atherosclerotic heart disease ?I25.10 - Atherosclerotic heart disease of [place] coronary artery without angina pectoris (ICD-10) Atherosclerosis of [place] arteries of extremities with rest pain, bilateral legs ?I70.223 - Atherosclerosis of [place] arteries of extremities with rest pain, bilateral legs (ICD-10) Obstructive sleep apnea ?G47.33 - Obstructive sleep apnea (adult) (pediatric) (ICD-10) History of myocardial infarction (2008) ?I25.2 - Old myocardial infarction (ICD-10) BPH (benign prostatic hyperplasia) ?N40.0 - Benign prostatic hyperplasia without lower urinary tract symptoms (ICD-10) Surgical History (Updated 03/24/23 @ 15:03 by Liz Wallace MD) History of vasectomy ?Z98.52 - Vasectomy status (ICD-10) History of tonsillectomy ?Z90.89 - Acquired absence of other organs (ICD-10) History of foot surgery ?Z98.890 - Other specified postprocedural states (ICD-10) History of blepharoplasty (08/21/14) ?Z98.890 - Other specified postprocedural states (ICD-10) History of appendectomy ?Z90.49 - Acquired absence of other specified parts of digestive tract (ICD-10) History of total bilateral knee replacement ?Z96.653 - Presence of artificial knee joint, bilateral (ICD-10) History of total right hip arthroplasty (11/12/19) ?Z96.641 - Presence of right artificial hip joint (ICD-10) History of coronary artery stent placement (2007) ?Z95.5 - Presence of coronary angioplasty implant and graft (ICD-10) Family History Paternal Grandfather Diabetes Father Nonmelanoma skin cancer Coronary artery disease High cholesterol High blood pressure Brother Coronary artery disease, Onset Age: 58 High cholesterol Diabetes High blood pressure Sister High cholesterol High blood pressure Diabetes Social History (Updated 06/13/22 @ 21:24 by Gilberto Pope MD) Narrative: , 3 kids, retired, non-smoker, social EtOH What is your current living situation?: I presently have a place to live Problems where you live: no known problems In the past 12 months, utilities in danger of being shut off: no In past 12 months, lack of transportation kept you from medical appts, meetings, work, or getting things needed for daily living: no In the past 12 mos, have been you worried that your food would run out before you had money to buy more?: never true In the past 12 mos, the food you bought just didn't last and you didn't have money to buy more?: never true Highest level of school completed/degree received: high school graduate Smoking Status: Never smoker Do you use any of these nicotine containing products: None Second hand tobacco smoke exposure: No How often do you have a drink containing alcohol: 2-3 times a week Alcohol type: hard liquor How many standard drinks containing alcohol do you have on a typical day: 3 or 4 How often do you have six or more drinks on one occasion: Never AUDIT-C Alcohol total score: 4 Non-prescribed substance use: denies use Caffeine: Yes How often does anyone, including family, friends and others, physically hurt you: never How often does anyone, including family, friends and others, insult or talk down to you: never How often does anyone, including family, friends and others, threaten you with harm: never How often does anyone, including family, friends and others, scream or curse at you: never Little interest or pleasure in doing things: several days Feeling down, depressed, or hopeless: not at all service: Yes Meds Home Medications and Allergies Home Medications Medication Instructions Recorded Confirmed Type aspirin 81 mg chewable tablet 81 mg PO QDAY 06/08/22 03/24/23 History (Aspirin Childrens) duloxetine 60 mg capsule,delayed 60 mg PO DAILY 06/08/22 03/24/23 History release glipizide 10 mg tablet 20 mg PO BID 06/08/22 03/24/23 History lisinopril 20 mg tablet 20 mg PO QDAY 06/08/22 03/24/23 History hsyuakat-wxtykdzu-pixql acid 400 1 tab PO QDAY 06/08/22 03/24/23 History mcg-vit K 20 mcg-lycop 300 mcg tablet (One-A-Day Men's Multivitamin) hydrochlorothiazide 25 mg tablet 25 mg PO DAILY 03/24/23 03/24/23 History Allergies Allergy/AdvReac Type Severity Reaction Status Date / Time Iodinated Contrast Media Allergy Unknown Mid 60s. Verified 03/24/23 08:39 Had contrast since and did OK naproxen Allergy Unknown GI Bleed Verified 03/24/23 08:39 Exam Narrative: Exam Narrative: GEN: Alert and oriented, answering questions appropriately HEENT: EOMIs bilaterally, no scleral icterus, + mild conjunctival pallor CV: RRR, No concerning murmurs R: LCTA bilaterally without concerning wheezing, air movement adequate Ext: wwp, no concerning edema, wearing Toan hose bilaterally Skin: No concerning skin lesions or rashes on exposed skin Neuro: No focal deficits Psych: Appropriate Const: Vital Signs, click to edit/add: Vital Signs - 24 hr 03/24/23 09:00 03/24/23 09:14 03/24/23 09:20 Temperature 97.2 F L Pulse Rate 47 L 58 L 49 L Pulse Rate [Left P ulse Oximeter] Respiratory Rate 16 16 16 Blood Pressure 123/64 142/77 H 103/67 Blood Pressure [Le ft Arm] Pulse Oximetry 97 98 96 Oxygen Delivery Me thod Room Air Nasal Cannula Nasal Cannula Oxygen Flow Rate 2 2 03/24/23 09:25 03/24/23 09:30 03/24/23 12:53 Temperature 97.1 F L Pulse Rate 44 L 44 L 52 L Pulse Rate [Left P ulse Oximeter] Respiratory Rate 16 16 14 Blood Pressure 106/74 102/60 94/61 Blood Pressure [Le ft Arm] Pulse Oximetry 96 99 92 Oxygen Delivery Me thod Nasal Cannula Nasal Cannula OxyMask Oxygen Flow Rate 2 2 6 03/24/23 13:00 03/24/23 13:05 03/24/23 13:10 Temperature Pulse Rate 57 L 50 L 47 L Pulse Rate [Left P ulse Oximeter] Respiratory Rate 12 14 12 Blood Pressure 85/65 L 105/66 118/69 Blood Pressure [Le ft Arm] Pulse Oximetry 98 97 95 Oxygen Delivery Me thod Oxygen Flow Rate 03/24/23 13:15 03/24/23 13:20 03/24/23 13:25 Temperature Pulse Rate 51 L 52 L 49 L Pulse Rate [Left P ulse Oximeter] Respiratory Rate 14 16 16 Blood Pressure 113/62 104/67 106/73 Blood Pressure [Le ft Arm] Pulse Oximetry 94 95 94 Oxygen Delivery Me thod Nasal Cannula Oxygen Flow Rate 2 03/24/23 13:30 03/24/23 13:35 03/24/23 13:40 Temperature Pulse Rate 46 L 50 L 46 L Pulse Rate [Left P ulse Oximeter] Respiratory Rate 14 16 15 Blood Pressure 99/58 L 98/59 L 107/70 Blood Pressure [Le ft Arm] Pulse Oximetry 95 96 97 Oxygen Delivery Me thod Oxygen Flow Rate 03/24/23 13:45 03/24/23 13:50 03/24/23 13:55 Temperature Pulse Rate 44 L 46 L 48 L Pulse Rate [Left P ulse Oximeter] Respiratory Rate 16 14 12 Blood Pressure 106/56 L 90/48 L 83/56 L Blood Pressure [Le ft Arm] Pulse Oximetry 98 97 98 Oxygen Delivery Me thod Oxygen Flow Rate 03/24/23 14:00 03/24/23 14:15 03/24/23 14:23 Temperature 98.1 F 96.4 F L 96.7 F L Pulse Rate 47 L 50 L Pulse Rate [Left P ulse Oximeter] 49 L Respiratory Rate 12 14 14 Blood Pressure 87/59 L Blood Pressure [Le ft Arm] 89/62 L 97/58 L Pulse Oximetry 98 92 Oxygen Delivery Me thod Room Air Room Air Oxygen Flow Rate 03/24/23 14:30 Temperature 96.9 F L Pulse Rate Pulse Rate [Left P ulse Oximeter] 49 L Respiratory Rate 14 Blood Pressure Blood Pressure [Le ft Arm] 93/58 L Pulse Oximetry 93 Oxygen Delivery Me thod Room Air Oxygen Flow Rate Assessment and Plan Assessment and plan (1) Status post left hip replacement: Status: Acute (2) Postoperative hypotension: Problem comment: - iatrogenic vs related to acute blood loss, notably has no tachycardia (took BB this morning) - follow hemoglobin, IVF resuscitation as needed, patient currently asymptomatic Status: Acute (3) Type 2 diabetes mellitus, with long-term current use of insulin: Problem comment: - A1C 6.7 03/2023 Status: Acute (4) Primary hypertension: Status: Acute (5) Obstructive sleep apnea: Problem comment: Untreated due to allergy to the mask. Status: Chronic Plan - follow Hgb and VS, holding home BP medications - pain management and prophylaxis per orthopedic surgery team - continue other home medications for comorbidities - anticipate routine postoperative course as long as Hgb stable - updated at bedside, questions answered
[2023-03-24 14:49] LABS: Hemoglobin* 11.7 gm/dL (13.5-17.5)
[2023-03-24] MEDS: CEFAZOLIN 2 GM in 0.9 % SODIUM CHLORIDE Mini-bag 100 ML IVPB (18:17)
[2023-03-24] MEDS: glipiZIDE 5 MG TABLET 10 MG PO (18:18)
[2023-03-24] MEDS: METFORMIN ER 500 MG 1000 MG PO (18:18)
--- NOTE | 2023-03-24 19:02 | PC.NURSE ---
End of shift: patient up to the floor at 1408, alert and oriented x4, Carin at bedside. Patient rates pain 6/10 but did not want anything for pain, states he is comfortable at 6. Patient denies N/SOB. 95% on RA. IV in right FA patent w/LR running at 75 mls/hr. Ronald. Teds, Plexi pulses, active ice to op site. Dressing to left hip C/D/I. Patients BP still soft, patient denies feeling light headed. Patient tolerating a reg diet, and able to stand at bedside and use urinal. Plan for discharge tomorrow, home with .
[2023-03-24] MEDS: OXYCODONE 5 MG TABLET PO (20:45)
[2023-03-24] MEDS: SENNOSIDES 1 TAB TABLET 2 TAB PO (20:45)
[2023-03-24] MEDS: ATORVASTATIN CALCIUM 40 MG TABLET PO (20:45)
--- NOTE | 2023-03-24 22:58 | PC.NURSE ---
At HS Pt BG was 228. Notified. No change in orders
[2023-03-25] MEDS: OXYCODONE 5 MG TABLET PO (02:20)
[2023-03-25] MEDS: CEFAZOLIN 2 GM in 0.9 % SODIUM CHLORIDE Mini-bag 100 ML IVPB (02:21)
[2023-03-25 03:04] VITALS: BP 109/57; PULSE 58; RESP 16; TEMP 36.3; O2SAT 96
[2023-03-25 03:06] VITALS: TEMP 36.3
[2023-03-25] MEDS: ACETAMINOPHEN 500 MG TABLET 1000 MG PO ×2 (03:06→09:23)
[2023-03-25 04:45] VITALS: TEMP 36.3
--- NOTE | 2023-03-25 04:55 | PC.NURSE ---
Pt rested well this night. Pain controlled. No N/V. L hip CDI. Afebrile. Up SBA with walker and moving well Voiding.
[2023-03-25 06:07] LABS: Hematocrit 36.6 % (37.0-53.0); Hemoglobin* 11.7 gm/dL (13.5-17.5); Immature Granulocytes Pct Auto 0.7 %; Lymphocytes Percent Auto 15.3 % (20-44); Mean Corpuscular HGB Conc 32 gm/dL (32-36); Mean Corpuscular Hemoglobin 30 pg (26-34); Mean Corpuscular Volume 94 fL (80-100); Monocytes Percent Auto 9.4 % (0.0-11.0); Neutrophils Percent Auto 74.6 % (42.0-72.0); Platelet Count* 212 K/uL (140-440); RDW Coefficient of Variation % 12.8 % (11.5-15.5); Red Blood Count 3.89 m/uL (4.30-5.90); White Blood Count* 13.77 K/uL (4.50-11.00)
[2023-03-25 06:17] LABS: Slide Review Reflex No
[2023-03-25 06:21] LABS: Potassium* 4.6 mmol/L (3.6-5.1); Sodium* 136 mmol/L (135-149)
[2023-03-25 06:24] LABS: Est. Creatinine Clearance* 64.81; Estimated Glomerular Filt Rate 79 ml/min
[2023-03-25 06:25] LABS: Blood Urea Nitrogen* 27 mg/dL (7-30)
--- NOTE | 2023-03-25 07:29 | PM.ORPN ---
Subjective Subjective Time Seen by Provider: 07:30 Date Seen: 03/25/23 Principal diagnosis: Status post left hip replacement Interval history: Jigar is comfortable. He states he has been sleeping well. He has ambulated into the restroom without problems. He denies dizziness, shortness of breath, lightheadedness, fatigue. Ortho Exam Narrative Exam Narrative: Alert and oriented x3. Patient is in no acute distress. Converses without labored breathing. Hearing is grossly intact. Ambulates with a walker. Examination of the left hip shows the dressing is intact. Mild soft tissue edema about the hip. Quad strength 5/5. CMS is intact left lower extremity. Bilateral calves are soft and nontender. No erythema or warmth or sign of infection. Const Vital Signs, click to edit/add: Vital Signs - 24 hr 03/24/23 09:00 03/24/23 09:14 03/24/23 09:20 Temperature 97.2 F L Pulse Rate 47 L 58 L 49 L Pulse Rate [Left Pulse Oximeter] Respiratory Rate 16 16 16 Blood Pressure 123/64 142/77 H 103/67 Blood Pressure [Left Arm] Pulse Oximetry 97 98 96 Oxygen Delivery Method Room Air Nasal Cannula Nasal Cannula Oxygen Flow Rate 2 2 03/24/23 09:25 03/24/23 09:30 03/24/23 12:53 Temperature 97.1 F L Pulse Rate 44 L 44 L 52 L Pulse Rate [Left Pulse Oximeter] Respiratory Rate 16 16 14 Blood Pressure 106/74 102/60 94/61 Blood Pressure [Left Arm] Pulse Oximetry 96 99 92 Oxygen Delivery Method Nasal Cannula Nasal Cannula OxyMask Oxygen Flow Rate 2 2 6 03/24/23 13:00 03/24/23 13:05 03/24/23 13:10 Temperature Pulse Rate 57 L 50 L 47 L Pulse Rate [Left Pulse Oximeter] Respiratory Rate 12 14 12 Blood Pressure 85/65 L 105/66 118/69 Blood Pressure [Left Arm] Pulse Oximetry 98 97 95 Oxygen Delivery Method Oxygen Flow Rate 03/24/23 13:15 03/24/23 13:20 03/24/23 13:25 Temperature Pulse Rate 51 L 52 L 49 L Pulse Rate [Left Pulse Oximeter] Respiratory Rate 14 16 16 Blood Pressure 113/62 104/67 106/73 Blood Pressure [Left Arm] Pulse Oximetry 94 95 94 Oxygen Delivery Method Nasal Cannula Oxygen Flow Rate 2 03/24/23 13:30 03/24/23 13:35 03/24/23 13:40 Temperature Pulse Rate 46 L 50 L 46 L Pulse Rate [Left Pulse Oximeter] Respiratory Rate 14 16 15 Blood Pressure 99/58 L 98/59 L 107/70 Blood Pressure [Left Arm] Pulse Oximetry 95 96 97 Oxygen Delivery Method Oxygen Flow Rate 03/24/23 13:45 03/24/23 13:50 03/24/23 13:55 Temperature Pulse Rate 44 L 46 L 48 L Pulse Rate [Left Pulse Oximeter] Respiratory Rate 16 14 12 Blood Pressure 106/56 L 90/48 L 83/56 L Blood Pressure [Left Arm] Pulse Oximetry 98 97 98 Oxygen Delivery Method Oxygen Flow Rate 03/24/23 14:00 03/24/23 14:15 03/24/23 14:23 Temperature 98.1 F 96.4 F L 96.7 F L Pulse Rate 47 L 50 L Pulse Rate [Left Pulse Oximeter] 49 L Respiratory Rate 12 14 14 Blood Pressure 87/59 L Blood Pressure [Left Arm] 89/62 L 97/58 L Pulse Oximetry 98 92 Oxygen Delivery Method Room Air Room Air Oxygen Flow Rate 03/24/23 14:30 03/24/23 14:45 03/24/23 15:00 Temperature 96.9 F L 96.9 F L 96.5 F L Pulse Rate Pulse Rate [Left Pulse Oximeter] 49 L 46 L 46 L Respiratory Rate 14 14 14 Blood Pressure Blood Pressure [Left Arm] 92/52 L 93/58 L 100/69 Pulse Oximetry 93 91 94 Oxygen Delivery Method Room Air Room Air Room Air Oxygen Flow Rate 03/24/23 15:30 03/24/23 16:00 03/24/23 17:00 Temperature 96.6 F L 96.6 F L 96.6 F L Pulse Rate Pulse Rate [Left Pulse Oximeter] 48 L 48 L 54 L Respiratory Rate 14 14 16 Blood Pressure Blood Pressure [Left Arm] 88/60 L 82/60 L 114/63 Pulse Oximetry 93 94 94 Oxygen Delivery Method Room Air Room Air Room Air Oxygen Flow Rate 03/24/23 18:00 03/24/23 19:00 03/24/23 20:04 Temperature 96.9 F L 97.3 F L 97.3 F L Pulse Rate Pulse Rate [Left Pulse Oximeter] 52 L 52 L 52 L Respiratory Rate 16 16 16 Blood Pressure Blood Pressure [Left Arm] 97/59 L 99/66 103/60 Pulse Oximetry 95 95 96 Oxygen Delivery Method Room Air Room Air Room Air Oxygen Flow Rate 0 0 03/24/23 20:05 03/24/23 20:45 03/24/23 22:59 Temperature 97.3 F L 97.3 F L 97.3 F L Pulse Rate Pulse Rate [Left Pulse Oximeter] 52 L 52 L Respiratory Rate 16 16 Blood Pressure Blood Pressure [Left Arm] 103/60 122/72 Pulse Oximetry 96 96 Oxygen Delivery Method Room Air Oxygen Flow Rate 0 03/24/23 23:00 03/25/23 03:04 03/25/23 03:06 Temperature 97.3 F L 97.3 F L Pulse Rate Pulse Rate [Left Pulse Oximeter] 52 L 58 L Respiratory Rate 16 16 Blood Pressure Blood Pressure [Left Arm] 109/57 L Pulse Oximetry 96 Oxygen Delivery Method Room Air Oxygen Flow Rate 0 03/25/23 04:45 Temperature 97.3 F L Pulse Rate Pulse Rate [Left Pulse Oximeter] Respiratory Rate Blood Pressure Blood Pressure [Left Arm] Pulse Oximetry Oxygen Delivery Method Oxygen Flow Rate Assessment and Plan Assessment and plan (1) Status post left hip replacement: Problem details: 03/24/2023 Status: Acute Assessment and Plan: Plan for discharge is today to home if they meet discharge criteria. DVT prophylaxis includes Xarelto 10 mg daily for total of 5 days, then aspirin 81 mg twice daily for 30 days, Toan stockings x1 month may remove for 1 hr per day, frequent ambulation Remove dressing 1 week. Observe wound and phone Orthopedics with any questions or concerns Use Ice on operative hip unrestricted. Return to clinic in 1 week with PA for a wound check Return to clinic in 6 weeks with surgeon Minimize narcotic use. Wean off and discontinue soon as possible. Activities as tolerated. No strenuous activity. Attend outpt PT
[2023-03-25 07:30] VITALS: BP 117/69; PULSE 58; RESP 20; TEMP 36.2; O2SAT 96
[2023-03-25] MEDS: RIVAROXABAN 10 MG TABLET PO (07:56)
[2023-03-25] MEDS: TAMSULOSIN HCL 0.4 MG CAPSULE PO (07:56)
[2023-03-25] MEDS: METOPROLOL SUCCINATE (XL) 100 MG TAB 200 MG PO (07:56)
[2023-03-25] MEDS: MULTIVITAMIN/MINERALS 1 TABLET 1 TAB PO (07:56)
[2023-03-25] MEDS: METFORMIN ER 500 MG 1000 MG PO (07:56)
[2023-03-25] MEDS: DULOXETINE 30 MG CAPSULE DR 60 MG PO (07:56)
[2023-03-25] MEDS: glipiZIDE 5 MG TABLET 20 MG PO (07:57)
[2023-03-25] MEDS: SENNOSIDES 1 TAB TABLET 2 TAB PO (08:00)
--- NOTE | 2023-03-25 11:09 | PC.NURSE ---
Discharge - Pt alert, oriented, cooperative. Up with PT/OT and walker. Denies pain, SOB, nausea. Tolerating RA, regular diet and fluids. Dressing CDI. IV removed, catheter in place. Discharge education given with verbalized understanding. Discharge paperwork signed, pt discharged to home with spouse via wheelchair at approximately 1050.
== END 2023-03-25 10:50 | disposition home or self-care (01) ==
LOC: OR 07:51 → MEDSURG 07:54
PROVIDERS: Family Medicine; PCP Family Medicine; Visit Provider Orthopaedic Surgery
PROC: (CPT 27130; principal; 2023-03-24 09:30)
PROC: (CPT 26055; 2023-03-24 09:30)
DX: M16.12 Unilateral primary osteoarthritis, left hip (principal); M65.842 Other synovitis and tenosynovitis, left hand; G89.18 Other acute postprocedural pain; I95.81 Postprocedural hypotension; G47.33 Obstructive sleep apnea (adult) (pediatric); I10 Essential (primary) hypertension; E11.9 Type 2 diabetes mellitus without complications; Z79.4 Long term (current) use of insulin
CPT/HCPCS: 27130; 26055; 01214; 36415; 64450; 73501; 76942; 82565; 82962; 84132; 84295; 84520; 85018; 85025; 97110; 97116; 97161; 97165; 97535; 99100; A9153; A9270; C1776; J0330; J0665; J0690; J1100; J1170; J2250; J2371; J2405; J2704; J2795; J3010; J3490; J7120

== ENCOUNTER 2023-08-08 19:19 | Emergency (ER) | payer MEDICARE, BC, SELFPAY ==
[2023-08-08 19:29] VITALS: BP 118/70; PULSE 78; RESP 16; TEMP 36.3; O2SAT 95; BMI 34.0
[2023-08-08] MEDS: cephALEXin 500 MG CAPSULE 1000 MG PO (19:53)
--- NOTE | 2023-08-08 19:55 | ED_ITS ---
HPI - Skin/Abscess/Foreign Bdy General Date Seen: 08/08/23 Chief complaint: Skin/Abscess/Foreign Body Stated complaint: L middle toe swollen/painful, diabetes Time Seen by Provider: 08/08/23 19:23 Source: patient and family Mode of arrival: ambulatory Limitations: no limitations History of Present Illness HPI narrative: Patient here with cellulitis -appearing tissue on left foot, third toe . Has neuropathy, diabetic Patient is a nice gentleman has a 2-3 day history of above. The left 3rd toe was painful, he does remember hitting it or injuring it, and no history of fevers chills or sweats, he is a diabetic and does have neuropathy, there is a history in his chart of vascular disease, and cardiovascular disease when asked him about this however he did denies that this is a problem. Sees Dr. Pope for primary care, no history of antibiotic allergies. Has a history of a GI bleed and should avoid all NSAIDs. Has been doing Epson salts soaks. No history of gout. Related Data Home Medications Medication Instructions Recorded Confirmed aspirin 81 mg chewable tablet 81 mg PO QDAY 06/08/22 06/09/23 (Aspirin Childrens) duloxetine 60 mg capsule,delayed 60 mg PO DAILY 06/08/22 06/09/23 release oxgypotc-qcdnysfc-ttgfh acid 400 1 tab PO QDAY 06/08/22 06/09/23 mcg-vit K 20 mcg-lycop 300 mcg tablet (One-A-Day Men's Multivitamin) metformin 500 mg tablet,extended 1,000 mg PO BID 03/24/23 06/09/23 release 24 hr blood sugar diagnostic (Contour #10 ea 06/08/23 06/08/23 Next Test Strips) blood-glucose sensor (FreeStyle #1 ea 06/08/23 06/08/23 Dustin 3 Sensor device) flash glucose scanning reader #1 ea 06/08/23 06/08/23 (FreeStyle Dustin 2 Lotus) flash glucose sensor (FreeStyle #1 ea 06/08/23 06/08/23 Dustin 2 Sensor kit) pen needle, diabetic 31 gauge x #1,200 ea 06/08/23 06/08/23 5/16 (BD Ultra-Fine Short Pen Needle) Previous Rx's Medication Instructions Recorded atorvastatin 40 mg tablet 40 mg PO QDAY #90 tabs 09/13/22 tamsulosin 0.4 mg capsule (Flomax) 0.4 mg PO QDAY #90 caps 12/23/22 acetaminophen 500 mg capsule 500 - 1,000 mg (1 - 2 x 500 mg) PO 03/24/23 Q6H PRN pain #100 caps glipizide 10 mg tablet 10 - 20 mg (1 - 2 x 10 mg) PO BID 03/25/23 #270 tabs hydrochlorothiazide 25 mg tablet 12.5 mg (1/2 x 25 mg) PO DAILY #15 03/25/23 tabs lisinopril 20 mg tablet 20 mg PO QDAY #90 tabs 05/19/23 insulin glargine 100 unit/mL (3 20 unit (0.2 mL) subcut QAM 90 07/05/23 mL) subcutaneous pen (Basaglar days #21 mL KwikPen U-100 Insulin) metoprolol succinate 200 mg 200 mg PO QDAY #90 tabs 07/05/23 tablet,extended release 24 hr Allergies Allergy/AdvReac Type Severity Reaction Status Date / Time Iodinated Contrast Media Allergy Unknown Mid 60s. Verified 06/09/23 08:07 Had contrast since and did OK naproxen Allergy Unknown GI Bleed Verified 06/09/23 08:07 Review of Systems Status of ROS: Reports: 10 or more systems reviewed and unremarkable except as noted in History and below [facility] Medical History Loose left total knee arthroplasty ?T84.033A - Mechanical loosening of internal left knee prosthetic joint, initial encounter (ICD-10) Type 2 diabetes mellitus, with long-term current use of insulin ?E11.9 - Type 2 diabetes mellitus without complications (ICD-10) ?Z79.4 - senior care (current) use of insulin (ICD-10) Mixed hyperlipidemia ?E78.2 - Mixed hyperlipidemia (ICD-10) Primary hypertension ?I10 - Essential (primary) hypertension (ICD-10) Gout ?M10.9 - Gout, unspecified (ICD-10) Diabetic neuropathy ?E11.40 - Type 2 diabetes mellitus with diabetic neuropathy, unspecified (ICD-10) History of adenomatous polyp of colon ?Z86.010 - Personal history of colonic polyps (ICD-10) Sleep related gastroesophageal reflux disease ?K21.9 - Gastro-esophageal reflux disease without esophagitis (ICD-10) Hypertensive heart disease ?I11.9 - Hypertensive heart disease without heart failure (ICD-10) History of basal cell carcinoma (BCC) (2007) ?Z85.828 - Personal history of other malignant neoplasm of skin (ICD-10) Atherosclerotic heart disease ?I25.10 - Atherosclerotic heart disease of [place] coronary artery without angina pectoris (ICD-10) Atherosclerosis of [place] arteries of extremities with rest pain, bilateral legs ?I70.223 - Atherosclerosis of [place] arteries of extremities with rest pain, bilateral legs (ICD-10) Obstructive sleep apnea ?G47.33 - Obstructive sleep apnea (adult) (pediatric) (ICD-10) History of myocardial infarction (2007) ?I25.2 - Old myocardial infarction (ICD-10) BPH (benign prostatic hyperplasia) ?N40.0 - Benign prostatic hyperplasia without lower urinary tract symptoms (ICD-10) Surgical History Status post trigger finger release (03/24/23) ?Z98.890 - Other specified postprocedural states (ICD-10) Status post left hip replacement (03/24/23) ?Z96.642 - Presence of left artificial hip joint (ICD-10) History of vasectomy ?Z98.52 - Vasectomy status (ICD-10) History of tonsillectomy ?Z90.89 - Acquired absence of other organs (ICD-10) History of foot surgery ?Z98.890 - Other specified postprocedural states (ICD-10) History of blepharoplasty (08/21/14) ?Z98.890 - Other specified postprocedural states (ICD-10) History of appendectomy ?Z90.49 - Acquired absence of other specified parts of digestive tract (ICD- 10) History of total bilateral knee replacement ?Z96.653 - Presence of artificial knee joint, bilateral (ICD-10) History of total right hip arthroplasty (11/12/19) ?Z96.641 - Presence of right artificial hip joint (ICD-10) History of coronary artery stent placement (2007) ?Z95.5 - Presence of coronary angioplasty implant and graft (ICD-10) Family History Paternal Grandfather Diabetes Father Nonmelanoma skin cancer Coronary artery disease High cholesterol High blood pressure Brother Coronary artery disease, Onset Age: 58 High cholesterol Diabetes High blood pressure Sister High cholesterol High blood pressure Diabetes Social History Narrative: , 3 kids, retired, non-smoker, social EtOH What is your current living situation?: I presently have a place to live Problems where you live: no known problems In the past 12 months, utilities in danger of being shut off: no In past 12 months, lack of transportation kept you from medical appts, meetings, work, or getting things needed for daily living: no In the past 12 mos, have been you worried that your food would run out before you had money to buy more?: never true In the past 12 mos, the food you bought just didn't last and you didn't have money to buy more?: never true Highest level of school completed/degree received: high school graduate Smoking Status: Never smoker Do you use any of these nicotine containing products: None Second hand tobacco smoke exposure: No How often do you have a drink containing alcohol: 2-3 times a week Alcohol ty pe: hard liquor How many standard drinks containing alcohol do you have on a typical day: 3 or 4 How often do you have six or more drinks on one occasion: Never AUDIT-C Alcohol total score: 4 Non-prescribed substance use: denies use Caffeine: Yes How often does anyone, including family, friends and others, physically hurt you : never How often does anyone, including family, friends and others, insult or talk down to you: never How often does anyone, including family, friends and others, threaten you with harm: never How often does anyone, including family, friends and others, scream or curse at you: never Little interest or pleasure in doing things: several days Feeling down, depressed, or hopeless: not at all service: Yes Exam Narrative: Exam Narrative: On examination he is in no apparent distress he is not has some tenderness noted of his left 3rd toe, the tenderness is on the dorsum around his nail but I see no evidence of pointing to suggest this is a firm [place] I do believe that this is however where it started. The redness suggestive of cellulitis, the comes up to the PIP joint, only on the dorsum, not on the volar surface, and not really onto the dorsum of the foot, his foot however is a little bit more swollen. Using the vascular device I was able to the showed that he does have pulses in his DP and posterior tibial, due to the swelling I was unable to palpate these. On review of his chart I see no history of MRSA. Const: Vital Signs, click to edit/add: Vital Signs - 24 hr 08/08/23 19:29 Temperature 97.4 F L Pulse Rate [Pulse Oximeter] 78 Respiratory Rate 16 Blood Pressure [Ri ght Upper Arm] 118/70 Pulse Oximetry 95 Oxygen Delivery Me thod Room Air Documenting provider has reviewed patient's vital signs: yes Course Vital Signs Vital signs: Initial Vital Signs Temperature 97.4 F L 08/08/23 19:29 Temperature Source Temporal Artery Scan 08/08/23 19:29 Pulse Rate 78 08/08/23 19:29 Pulse Rhythm Regular 08/08/23 19:29 Respiratory Rate 16 08/08/23 19:29 Blood Pressure 118/70 08/08/23 19:29 Blood Pressure Mean 86 08/08/23 19:29 Blood Pressure Position Sitting 08/08/23 19:29 Pulse Oximetry 95 08/08/23 19:29 Oxygen Delivery Method Room Air 08/08/23 19:29 Vital Signs Temperature 97.4 F L 08/08/23 19:29 Pulse Rate 78 08/08/23 19:29 Respiratory Rate 16 08/08/23 19:29 Blood Pressure 118/70 08/08/23 19:29 Pulse Oximetry 95 08/08/23 19:29 Oxygen Delivery Method Room Air 08/08/23 19:29 Temperature 97.4 F L 08/08/23 19:29 Pulse Rate 78 08/08/23 19:29 Respiratory Rate 16 08/08/23 19:29 Blood Pressure 118/70 08/08/23 19:29 Pulse Oximetry 95 08/08/23 19:29 Oxygen Delivery Method Room Air 08/08/23 19:29 Medications Administered Medications: Generic Name Dose Route Start Last Admin Trade Name Freq PRN Reason Stop Dose Admin Cephalexin HCl 1,000 mg 08/08/23 19:46 08/08/23 19:53 Cephalexin 500 Mg Capsule PO 08/08/23 19:47 1,000 mg ONCE ONE Administration MDM - Skin/Abscess/Foreign Bdy MDM Narrative Medical decision making narrative: I think this is likely a cellulitis, probably arising from the nail itself. I do not see any evidence of a spot where I can [place]. I do think us some antibiotics here, Keflex and we gave him a 1000 mg here, and he with 500 q.i.d., elevation and soaks, follow-up with Dr. Pope in 48 hours or less for recheck. Tylenol for the discomfort and come back here if worsening. He was comfortable this Medical Records Attestation: I reviewed the patient's medical records. Discharge Plan Discharge Clinical Impression: Cellulitis and abscess of foot Patient Disposition: Home w/ Parent or Adult Condition: Stable Instructions: Cellulitis (ED), Abscess (ED), Abscess Follow-up (ED) Additional Instructions: Home rest medications as directed, elevation it least for 30 minutes at a time 4 times a day, follow-up in 2 days time with primary care for recheck, soaks in warm water with epsom salts 3 times a day. Suggest if worsening, they need to come back and be seen, tylenol for the discomfort Activity Level: Light activity Discharge Diet: Regular Prescriptions: No Action (DME) FreeStyle Dustin 3 Sensor Device See Rx Instructions .ROUTE .MEDSUPPLY Qty: 1 Patient Comments: [NO ORIGINAL SIG] Rx Instructions: As directed (DME) pen needle, diabetic [BD Ultra-Fine Short Pen Needle] 31 gauge x 5/16 needle See Rx Instructions .ROUTE DAILY Qty: 1200 Rx Instructions: As directed (DME) FreeStyle Dustin 2 Lotus Misc See Rx Instructions .ROUTE DIRECTED Qty: 1 Rx Instructions: As directed (DME) FreeStyle Dustin 2 Sensor Kit See Rx Instructions .ROUTE .MEDSUPPLY Qty: 1 Patient Comments: [NO ORIGINAL SIG] Rx Instructions: As directed (DME) Contour Next Test Strips Strip See Rx Instructions .ROUTE DAILY Qty: 10 Rx Instructions: As directed duloxetine 60 mg capsule,delayed release(DR/EC) 60 mg PO DAILY aspirin [Aspirin Childrens] 81 mg tablet,chewable 81 mg PO QDAY Hold Instructions: Resume on 04/29/23. One-A-Day Men's Multivitamin 400-20-300 mcg tablet 1 tab PO QDAY acetaminophen 500 mg capsule 500 - 1,000 mg PO Q6H MDD 4000mg per day PRN (Reason: pain) Qty: 100 0RF metformin 500 mg tablet extended release 24 hr 1,000 mg PO BID hydrochlorothiazide 25 mg tablet 12.5 mg PO DAILY Qty: 15 2RF Rx Instructions: New dose effective 03/25/2023 atorvastatin 40 mg tablet 40 mg PO QDAY Qty: 90 3RF tamsulosin [Flomax] 0.4 mg capsule 0.4 mg PO QDAY Qty: 90 3RF glipizide 10 mg tablet 10 - 20 mg PO BID Qty: 270 3RF Patient Comments: TAKE TWO TABLETS BY MOUTH BEFORE BREAKFAST AND ONE TABLET BEFORE SUPPER. Rx Instructions: 2 Qam and 1 Qpm lisinopril 20 mg tablet 20 mg PO QDAY Qty: 90 3RF insulin glargine [Basaglar KwikPen U-100 Insulin] 100 unit/mL (3 mL) insulin pen 20 unit subcut QAM 90 Days Qty: 21 3RF metoprolol succinate 200 mg tablet extended release 24 hr 200 mg PO QDAY Qty: 90 3RF Follow Up/Referrals: Gilberto Pope MD [Primary Care Provider] - [facility]one [facility] Info Inst[facility]
== END 2023-08-08 20:08 | disposition home or self-care (01) ==
LOC: ED 20:01
PROVIDERS: Emergency Provider Family Medicine; PCP Family Medicine
DX: L02.612 Cutaneous abscess of left foot (principal); L03.116 Cellulitis of left lower limb
CPT/HCPCS: 99283; 99284; A9270

== ENCOUNTER 2024-01-17 09:40 | Outpatient (CLI) | payer MEDICARE, BC, SELFPAY ==
--- OUTSIDE RECORDS SUMMARY | 2024-01-17 09:45 | XMS_ITS | Clinical Summary ---
Author Organization [employer] [facility] Address [place], [place] [address] Care Team Providers Care [facility] [facility] [employer] K[employer] Name Role Phone Yajaira Marquez MD Primary Care Provider + Allergies Active Allergy Reactions Criticality Noted Date Comments Iodinated Contrast Media 04/11/2009 Mid 60's reaction to injectable dye... However has had contrast since then and did OK Naproxen 01/31/2009 Blood in stool Medications Medication Sig Dispensed Refills Start Date End Date Status MULTIVITAMIN TAB Take 1 tablet by mouth once daily. Active metFORMIN extended release (GLUCOPHAGE XR) 500 mg tabletIndications :type 2 diabetes mellitus Take 1,000 mg by mouth 2 times daily with meals. Indications: type 2 diabetes mellitus Active lisinopril (PRINIVIL; ZESTRIL) 20 mg tablet Take 20 mg by mouth once daily. Active nitroglycerin (NITROSTAT) 0.[address] 0.3 mg under the tongue every 5 minutes if needed for Chest Pain. Active amoxicillin (AMOXIL) 500 mg capsule Take 4 capsules by mouth once 1 hour prior to dental procedure. 4 capsule 2 12/22/2016 Active hydroCHLOROthiazi de (HCTZ) 25 mg tablet Take 1 tablet by mouth once daily in the morning for blood pressure. 100 tablet 3 12/22/2016 Active atorvastatin (LIPITOR) 40 mg tabletIndications :hyperlipidemia Take 40 mg by mouth at bedtime. Indications: excessive fat in the blood Active metoprolol succinate (TOPROL XL) 100 mg Sustained-Release tablet Take 100 mg by mouth 2 times daily. Active glipiZIDE (GLUCOTROL) 10 mg tablet Take 20 mg by mouth once daily before a meal. Active glipiZIDE (GLUCOTROL) 10 mg tablet Take 10 mg by mouth once daily before evening meal. Active aspirin (ECOTRIN) 81 mg enteric coated tabletIndications :Status post total hip replacement, right Take 1 tablet by mouth 2 times daily with meals. 120 tablet 11/13/2019 Active acetaminophen (TYLENOL EXTRA STRGTH) 500 mg tabletIndications :Status post total hip replacement, right Take 2 tablets by mouth every 6 hours. Max acetaminophen dose: 4000mg in 24 hrs. 200 tablet 11/13/2019 Active oxyCODONE (ROXICODONE) 5 mg immediate release tabletIndications :Status post total hip replacement, right Take 1 to 2 tablets by mouth every 6 hours if needed for Pain. Max of 6 tabs per day. 42 tablet 11/13/2019 Active sennosides-docusa te, 8.6-50 mg, (SENOKOT S) 8.6-50 mg tabletIndications :Status post total hip replacement, right Take 1 to 3 tablets by mouth 2 times daily. 100 tablet 11/13/2019 Active WalkerIndications :Status post total hip replacement, right Walker with front wheels for home use. 1 Device 11/13/2019 Active Active Problems Problem Noted Date Diagnosed Date Status post total hip replacement, right 020 Dermatochalasis of both upper eyelids 08/21/2014 Pyogenic arthritis, lower leg 05/31/2011 Stiffness of joint, not elsewhere classified, lo wer leg 04/21/2009 Osteoarthritis of knee 04/09/2009 Diabetes type 2, controlled 02/19/2009 HTN (hypertension) 02/19/2009 KATIA (obstructive sleep apnea) 02/19/2009 Resolved Problems Problem Noted Date Diagnosed Date Resolved Date Osteoarthrosis, unspecified whether generalized or localized, lower leg 02/12/200903/05 Immunizations Name Administration Dates Next Due Influenza A (H1N1), Inactiva rupali (Age >=3 Years) 03/15/2009 Influenza, High-dose Inactivated 03/13/2013 Influenza, IIV3 (Age >=3 years) 05/19/19 12,05/21/2010,05/21/2010,2008 Pneumococcal Poly,23-Valent (Pneumovax) 04/20/2012,06/22/2007 Td (Age >=7 Years) 09/09/2000 Tdap 11/02/2010,11/02/2010 Zoster (Zostavax-ZVL, live) 06/07/2013 Family History Medical History Relation Name Comments Diabetes Brother Heart Disease Brother [place] 50's Hypertension Brother Cancer Father Skin (non melan jeannine) Hypertension Father Diabetes Maternal Grandfather Diabetes Paternal Grandfather Diabetes Paternal Grandmother Diabetes Sister Heart Disease Sister [place] 50's Hypertension Sister Relation Name Status Comments Brother Father Maternal Grandfather Paternal Grandfather Paternal Grandmother Sister Social History Tobacco Use Types Packs/Day Years Used Date Smoking Tobacco: Former Cigarettes Q uit: 07/04/2007 Smokeless Tobacco: Never Comments:quit 2007 after 35- 100 pk year hx Alcohol Use Standard Drinks/Week Comments Yes 4.2 (1 standard drink = 0.6 oz p ure alcohol) 15 mixed drinks per week Sex and Gender Information Value Date Recorded Sex Assigned at Not on file Gender Identity Not on file Sexual Orientation Not on file Obstetrics History Last Filed Vital Signs Vital Sign Reading Time Taken Comments Blood Pressure 120/80 01/22/2022 3:51 PM CDT Pulse 66 01/22/2022 3:51 PM CDT Temperature 36.9 ??C (98.5 ??F) 01/22/2022 3:51 PM CD T Respiratory Rate 18 01/22/2022 3:51 PM CDT Oxygen Saturation 93% 01/22/2022 3:51 PM CDT Inhaled Oxygen Concentration - - Weight 102.5 kg (226 lb) 01/22/2022 3:51 PM CDT Height 175.3 cm (5' 9) 01/22/2022 3:51 PM CDT Body Mass Index 33.37 01/22/2022 3:51 PM CDT Plan of Treatment Health Maintenance Due Date Last Done Comments Depression screening for age 12+ 1960 Hepatitis C screening for ag e 18-79 1966 Lipids for age 45-75 1993 Pneumococcal series for age 65+ (2 of 2 - PCV) 04/20/2013 04/20/2012, 06/22/2007 Zoster (shingles) series for age 50+ (2 of 3) 08/02/2013 06/07/2013 BMI (ht and wt on same day) for age 18+ 12/22/2017 12/22/2016 Tetanus booster 11/02/2020 11/02/2010, 04/2010, 09/09/2000 RSV vaccine for adults or (1 - 1-dose 75+ series) 2023 COVID-19 vaccine series ( season) 2023 07/09/2021, 07/08/2020, 06/05/2020 Influenza for age 65+ 12/04/2023 03/13/2013 , 05/19/2011, 05/21/2010, Additional history exists Colonoscopy through age 75 01/10/2027 01/10/2017, Tdap Completed 11/02/2010, 11/02/2010 Medical Devices Implanted Type Area Filtration Operator Device Identifier Shelf Expiration Date Model / Serial / Lot Patella 35mm All Poly Giovanyn - [id number] Implanted:Qty: 1 on 08/09/2011 by Guillaume Sumner Jr., MD at [facility] Total Joint Left: Knee [employer] 06/03/2019 # / / [id number] - [id number] Implanted:Qty: 1 on 02/19/2009 at [facility] Left: Knee BIOMET 01/02/2019 [id number]# / / [id number] Description:Silvestre # [id number] - [id number] Implanted:Qty: 1 on 02/19/2009 at [facility] Left: Knee BI[employer] 01/02/2019 514759# / / [id number] - [id number] Implanted:Qty: 1 on 02/19/2009 at [facility] Left: Knee [employer] 10/02/2013 [id number]# / / [id number] - [id number] Implanted:Qty: 1 on 02/19/2009 at [facility] Left: Knee [employer] 11/02/2013 [id number]# / / [id number] Cmnt Bone Smartset Hv 40g High Visc - [id number] Implanted:Qty: 1 on 02/19/2009 at [facility] DEPUY 5450-35-500# / / Cmnt Bone 40 G Smartset Gmv Gentamicin - [id number] Implanted:Qty: 1 on 02/19/2009 at [facility] DEPUY 5450-50-501# / / Cmnt Bone Palacos R W/Gentamicin - [id number] Implanted:Qty: 2 on 05/31/2011 at [facility] Left: Knee [employer] 12/01/2014 1113-140-01# / / [id number] Interspace Knee Med High Release Spacer - [id number] Implanted:Qty: 1 on 05/31/2011 at [facility] [employer] 01/02/2016 [id number]# / / [id number] Screw 48mm Headed - [id number] Implanted:Qty: 1 on 08/09/2011 by Guillaume Sumner Jr., MD at [facility] Left: Knee [employer] 06/02/2021 5791-41# / / [id number] Cmnt Bone Palacos R W/Gentamicin - [id number] Implanted:Qty: 3 on 08/09/2011 at [facility] [employer] 12/03/2014 1113-140-01 # / / [id number] Description:with 3 gram vanc omycin mixed with cement Plate Tibial Sz 6 Nexgen Wedged Prct - [id number] Implanted:Qty: 1 on 08/09/2011 by Guillaume Sumner Jr., MD at [facility] Left: Knee [employer] 5988-06# / / [id number] - [id number] Implanted:Qty: 2 on 08/09/2011 by Guillaume Sumner Jr., MD at [facility] Left: Knee 06/02/2021 [id number] / / [id number] Fem Sz F Lt Nexgen Knee Lcck - [id number] Implanted:Qty: 1 on 08/09/2011 by Guillaume Sumner Jr., MD at [facility] Left: Knee [employer] 11/02/2020 # / / [id number] - [id number] Implanted:Qty: 1 on 08/09/2011 by Guillaume Sumner Jr., MD at [facility] Left: Knee 08/03/2015 / / [id number] Cmnt Bone Palacos R W/Gentamicin - [id number] Implanted:Qty: 1 on 08/09/2011 by Guillaume Sumner Jr., MD at [facility] Left: Knee [employer] 05/05/2014 1113-140-01# / / [id number] Screw 48mm Headed - [id number] Implanted:Qty: 1 on 08/09/2011 by Guillaume Sumner Jr., MD at [facility] Left: Knee [employer] 06/02/2021 5791-41# / / [id number] Shell Hip 52e Trident Ii Clusterhole Tritanium - [id number] Implanted:Qty: 1 on 11/12/2019 by Gilberto Granger MD at [facility] Right: Hip [employer] 03/21/2024 702-04-52E# / / [id number] Screw Hip 6.5x30mm [employer] Low Profile Hex - [id number] Implanted:Qty: 1 on 11/12/2019 by Gilberto Granger MD at [facility] Right: Hip [employer] 03/19/2024 6912-8364# / / 32PE Liner Hip Id36mm Vanessa 0deg Trident X3 - [id number] Implanted:Qty: 1 on 11/12/2019 by Gilberto Granger MD at [facility] Right: Hip [employer] 01/28/2025 623-00-36E# / / [id number] Stem Hip Sz5 127deg Accolade Ii - [id number] Implanted:Qty: 1 on 11/12/2019 by Gilberto Granger MD at [facility] Right: Hip [employer] [facility] 03/11/2024 9415-1164# / / [id number] Head Hip Od36mm +2.5 [employer] Delta C-Taper Alumina Cer - [id number] Implanted:Qty: 1 on 11/12/2019 by Gilberto Granger MD at [facility] Right: Hip [employer] 09/24/2024 6570-0-536# / / [id number] Explanted Type Area Filtration Operator Device Identifier Shelf Expiration Date Model / Serial / Lot Kit Bioprep Bone Preparation - [id number] Explanted:Qty: 1 on 08/09/2011 by Guillaume Sumner Jr., MD at [facility] Left: Knee [employer] [id number]# / / [id number] Procedures Procedure Name Priority Date/Time Associated Diagnosis Comments COLONOSCOPY 01/10/2017 7:17 AM CDT from Last 3 Months or Most Recently Relevant to Health Maintenance Results * COLONOSCOPY (01/10/2017 7:17 AM CDT) 01/10/2017 7:17 AM CDT Narrative Transcriptions José Escamilla MD - 01/10/2017 8:27 AM CDT Patient Name: Jigar New Procedure Date: 01/10/2017 Gender: Male Date of : 1950 Admit Type: Ambulatory Procedure: Colonoscopy Proceduralist: José Escamilla [facility] Referring MD: Yajaira Marquez Indications/Pre-Op Diagnosis: Surveillance: Personal history ofadenomatous polyps on last colonoscopy 3 years ago Medications: Propofol per Anesthesia Procedure Description: The procedure, indications, potential complications, (bleeding, perforation, infection, adverse medication reaction, missed lesionsor polyps) and alternatives available were explained to the patient, who appeared to understand and indicated this. Opportunity for questionswas provided and informed consent obtained. The colonoscope was passed through the anus and advanced to thececum, identified by appendiceal orifice and ileocecal valve. Thecolonoscopy was performed without difficulty. The patient tolerated the procedure well. The quality of the bowel preparation was good. Complications: No immediate complications. Estimated blood loss: Minimal. Estimated Blood Loss & Specimen: Specimen collected: Yes and sent to Laboratory Findings: Many diverticula were found in the sigmoid colon, descending colon, transverse colon and ascending colon. A 3 mm polyp was found in the appendiceal orifice. The polyp wasflat. The polyp was removed with a cold snare. Resection and retrieval were complete. A 2 mm polyp was found in the hepatic flexure. The polyp was sessile. The polyp was removed with a cold snare. Resection and retrieval were complete. Two flat polyps were found in the distal transverse colon. The polyps were 4 to 5 mm in size. These polyps were removed with a cold snare. Resection and retrieval were complete. A 3 mm polyp was found in the rectum. The polyp was sessile. Thepolyp was removed with a cold snare. Resection and retrieval werecomplete. The exam was otherwise without abnormality on direct and retroflexion views. Impressions/Post-Op Diagnosis: - Diverticulosis in the sigmoid colon, in the descending colon, inthe transverse colon and in the ascending colon. - One 3 mm polyp at the appendiceal orifice, removed with a coldsnare. Resected and retrieved. - One 2 mm polyp at the hepatic flexure, removed with a cold snare. Resected and retrieved. - Two 4 to 5 mm polyps in the distal transverse colon, removed with a cold snare. Resected and retrieved. - One 3 mm polyp in the rectum, removed with a cold snare. Resectedand retrieved. - The examination was otherwise normal on direct and retroflexionviews. Recommendation: - Repeat colonoscopy in 3 years for surveillance. Moderate Sedation: All monitoring and sedation per anesthesia. José Escamilla, 01/10/2017 8:27:41 AM This report has been signed electronically. Note Initiated On: 01/10/2017 7:17 AM José Escamilla MD PROCEDURE ORD from Last 3 Months or Most Recently Relevant to Health Maintenance Advance Directives * Full Code (Latest Code Status on File) Date Activated Date Inactivated Comments 11/12/2019 5:59 AM 11/13/2019 4:21 PM * Full Code Date Activated Date Inactivated Comments 10/27/2018 9:26 AM 10/27/2018 1:06 PM * Full Code Date Activated Date Inactivated Comments 06/09/2018 9:58 AM 06/09/2018 1:32 PM * Full Code Date Activated Date Inactivated Comments 01/10/2017 7:03 AM 01/10/2017 11:28 AM * Full Code Date Activated Date Inactivated Comments 08/21/2014 8:38 AM 08/21/2014 6:41 PM Care Teams [employer] Relationship Specialty Start Date End Date Yajaira Marquez MD PCP - General 02/12/09
== END 2024-01-17 09:41 | disposition home or self-care (01) ==
PROVIDERS: PCP Family Medicine; Visit Provider Family Medicine
DX: I10 Essential (primary) hypertension (principal); E11.9 Type 2 diabetes mellitus without complications; E78.2 Mixed hyperlipidemia; Z12.5 Encounter for screening for malignant neoplasm of prostate
CPT/HCPCS: 80048; 80061; 84460; G0103

== ENCOUNTER 2024-07-18 09:22 | Outpatient (CLI) | payer MEDICARE, BC, SELFPAY ==
[2024-07-18 14:04] LABS: Chloride* 100 mmol/L (96-114); Sodium* 138 mmol/L (135-149)
[2024-07-18 14:07] LABS: Anion Gap 7 mEq/L (7-15); Blood Urea Nitrogen* 19 mg/dL (7-30); Carbon Dioxide* 31 mmol/L (20-32); Creatinine* 0.9 mg/dL (0.5-1.5); Estimated Glomerular Filt Rate 89 ml/min; Glucose* 253 mg/dL (60-115)
== END 2024-07-18 09:23 | disposition home or self-care (01) ==
LOC: FBOREF 09:22
PROVIDERS: PCP Family Medicine; Visit Provider Family Medicine
DX: I10 Essential (primary) hypertension (principal)
CPT/HCPCS: 80048

== ENCOUNTER 2024-10-22 09:10 | Outpatient (CLI) | payer MEDICARE, SELFPAY | END 2024-10-22 09:11 | disposition home or self-care (01) | PROVIDERS: PCP Family Medicine; Visit Provider Family Medicine | DX: E78.2 Mixed hyperlipidemia (principal); I10 Essential (primary) hypertension; E11.9 Type 2 diabetes mellitus without complications; N40.0 Benign prostatic hyperplasia without lower urinary tract symptoms; Z79.4 Long term (current) use of insulin | CPT/HCPCS: 80061; 84460; 85025 ==